=== PATIENT | female | born 1995 | race Caucasian/White ===

== ENCOUNTER 2018-05-06 16:33 | Emergency (ER) | payer OTHER, BC ==
--- NOTE | 2018-05-06 17:25 | ED ---
General Adult HPI - General Chief complaint: Head Injury Stated complaint: Head injury-[facility] Time Seen by Provider: 05/06/18 16:46 Source: patient, RN notes reviewed, old records reviewed Mode of arrival: ambulatory Limitations: no limitations - History of Present Illness Initial comments: 23-year-old female patient with past medical history of concussions presents to ED after sustaining a minor head trauma approximately 3 hours prior to presentation. 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 Patient reports that the plastic door came down and hit her on the crown of her head. Patient denies any loss of consciousness. 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 Patient poor that she went to [facility] that she was recommended to present to the ED. Patient states that she is asymptomatic. States that she does not feel like whn she had concussions in the past. Patient denies any changes in vision, headache, nausea vomiting, altered mental status. Patient does not have any ecchymoses, contusion, laceration. Patient denies all other review of systems. Systemic: Pt denies fatigue, myalgia, fever/chills, rash. Pt denies weakness, night sweats, weight loss. Neuro: Pt denies headache, visual disturbances, syncope or pre-syncope. HEENT: Pt denies ocular discharge or irritation, otalgia, rhinorrhea, pharyngitis or notable lymphadenopathy. Cardiopulmonary: Pt denies chest pain, SOB, heart palpitations, dyspnea on exertion. Abdominal/GI: Pt denies abdominal pain, n/v/d. : Pt denies dysuria, burning w/ urination, frequency/urgency. Denies new onset urinary or bowel incontinence. MSK: Pt denies myalgia, loss of strength or function in extremities. Neuro: Pt denies new onset weakness, paresthesias. - Related Data Home Medications Medication Instructions Recorded Confirmed ALPRAZolam [Xanax] 0.25 mg PO BID 05/06/18 05/06/18 Cyanocobalamin (Vitamin B-12) 1,000 mcg PO DAILY 05/06/18 05/06/18 [Vitamin B-12] Escitalopram [Lexapro] 10 mg PO DAILY 05/06/18 05/06/18 L.acidoph,Paracasei, B.lactis 1 cap PO DAILY 05/06/18 05/06/18 [Probiotic] Tamra Fe 1-20 1 tab PO DAILY 05/06/18 05/06/18 Multivitamins, Thera [Multivitamin 1 tab PO DAILY 05/06/18 05/06/18 (formulary)] Allergies Allergy/AdvReac Type Severity Reaction Status Date / Time paroxetine [From Paxil] AdvReac Nausea & Verified 05/06/18 17:24 Vomiting Review of Systems ROS Statement: Those systems with pertinent positive or pertinent negative responses have been documented in the HPI. ROS Other: All systems not noted in ROS Statement are negative. Past Medical History Past Medical History: No Reported History History of Any Multi-Drug Resistant Organisms: None Reported Past Surgical History: Adenoidectomy, Tonsillectomy Additional Past Surgical History / Comment(s): left breast mass removed Past Psychological History: Anxiety Smoking Status: Current some day smoker Past Alcohol Use History: Occasional Past Drug Use History: None Reported General Exam - General Exam Comments Initial Comments: Constitutional: NAD, AOX3, Pt has pleasant affect. HEENT: NC/AT, trachea midline, neck supple, no lymphadenopathy. Posterior pharynx non erythematous, without exudates. External ears appear normal, without discharge. Mucous membranes moist. Eyes PERRLA, EOM intact. There is no scleral icterus. No pallor noted. Cardiopulmonary: RRR, no murmurs, rubs or gallops, no JVD noted. Lungs CTAB in anterior and posterior perkins. No peripheral edema. Abdominal exam: Abdomen soft and non-distended. Abdomen non-tender to palpation in all 4 quadrants. Bowel sounds active in LLQ. No hepatosplenomegaly. No ecchymosis Neuro: CN II-XII intact. No nuchal rigidity. No gamboa sign or raccoon eyes. MSK: No posterior calf tenderness bilaterally, homans sign negative bilaterally. Posterior tibialis and radial pulse +2 bilaterally. Sensation intact in upper and lower extremities. Full active ROM in upper and lower extremities, 5/5 strength. Limitations: no limitations Course Vital Signs 05/06/18 05/06/18 16:40 17:53 Temperature 98 F 98.1 F Pulse Rate 77 63 Respiratory 18 19 Rate Blood Pressure 144/92 121/75 O2 Sat by Pulse 100 100 Oximetry Medical Decision Making - Medical Decision Making 23-year-old female patient with past medical history of concussions presents to ED after sustaining a minor head trauma approximately 3 hours prior to presentation. 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 Patient reports that the plastic door came down and hit her on the crown of her head. Patient denies any loss of consciousness. 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 Patient poor that she went to [email or web address] that she was recommended to present to the ED. Patient states that she is asymptomatic. States that she does not feel like whn she had concussions in the past. Patient denies any changes in vision, headache, nausea vomiting, altered mental status. Patient does not have any ecchymoses, contusion, laceration. Patient denies all other review of systems. Patient vital signs stable, afebrile. Physical exam displayed normal neurologic exam, no acute pathology. Shared decision making, patient declined CT. Patient states that she'll monitor for any symptoms. Pt to return to ED if new s/sx develop or if condition worsens in anyway. Case discussed with Dr. Pelaez. Disposition Clinical Impression: Minor head trauma Disposition: HOME SELF-CARE Condition: Stable Additional Instructions: Patient to adhere to previously discussed treatment plan and will take medication(s) as directed. Patient to follow up with PCP in 1-2 days. Patient to return to ED if symptoms do not improve. Please return to ER if condition worsens in any way. Please follow-up with primary care provider in 1-2 days. Is patient prescribed a controlled substance at d/c from ED?: No Referrals: Zeferino Jennings MD [Primary Care Provider] - 1-2 days
[2018-05-06 17:54] VITALS: BP 121/75; PULSE 63; RESP 19; TEMP 98.1
== END 2018-05-06 17:50 | disposition home or self-care (01) ==
LOC: EC 16:33
DX: S09.90XA Unspecified injury of head, initial encounter (principal); F41.9 Anxiety disorder, unspecified; F17.200 Nicotine dependence, unspecified, uncomplicated; Z53.29 Procedure and treatment not carried out because of patient's decision for other reasons; Z79.899 Other long term (current) drug therapy; Z88.8 Allergy status to other drugs, medicaments and biological substances; W22.8XXA Striking against or struck by other objects, initial encounter; Y92.511 Restaurant or cafe as the place of occurrence of the external cause; Y99.0 Civilian activity done for income or pay
CPT/HCPCS: 99283

== ENCOUNTER 2021-09-25 11:29 | Inpatient (IN) | payer BC ==
[2021-09-25 12:23] LABS: Basophils # (A) 0.1 k/uL (0-0.2); Basophils % (A) 0 %; Eosinophils # (A) 0.1 k/uL (0-0.7); Eosinophils % (A) 1 %; HCT 37.7 % (34.0-46.0); HGB 12.5 gm/dL (11.4-16.0); Lymphocytes # (A) 2.8 k/uL (1.0-4.8); Lymphocytes % (A) 26 %; MCH 29.6 pg (25.0-35.0); MCHC 33.1 g/dL (31.0-37.0); MCV 89.4 fL (80.0-100.0); Mean Platelet Volume 9.4; Monocytes # (A) 0.6 k/uL (0-1.0); Monocytes % (A) 5 %; Neutrophils # (A) 7.2 k/uL (1.3-7.7); Neutrophils % (A) 65 %; Platelet Count 229 k/uL (150-450); RBC 4.22 m/uL (3.80-5.40); RDW 12.8 % (11.5-15.5); WBC 11.1 k/uL (3.8-10.6)
[2021-09-25 12:35] LABS: Uric Acid 6.9 mg/dL (3.7-7.4)
[2021-09-25 12:36] LABS: Appearance,Urine Clear (Clear); Bilirubin,Urine Negative (Negative); Blood,Urine Negative (Negative); Color,Urine Colorless; Glucose,Urine (UA) Negative (Negative); Ketones,Urine Negative (Negative); Leukocyte Esterase,Urine Negative (Negative); Nitrite,Urine Negative (Negative); PH, Urine 6.5 (5.0-8.0); Protein,Urine Negative (Negative); Specific Gravity,Urine 1.007 (1.001-1.035); Urobilinogen,Urine <2.0 mg/dL (<2.0)
[2021-09-25 12:36] LABS: INR 0.8 (<1.2); Partial Thromboplastin Time 23.8 sec (22.0-30.0); Prothrombin Time 9.3 sec (9.0-12.0)
[2021-09-25] MEDS ORDERED: TERBUTALINE 1 MG/ML VIAL SQ PRN (12:39)
[2021-09-25] MEDS ORDERED: LIDOCAINE 0.5% (PF) 5 MG/ML (50 ML SDV) SQ PRN (12:39)
[2021-09-25] MEDS ORDERED: METHYLERGONOVINE 0.2 MG/ML 1 ML AMP IM PRN (12:39)
[2021-09-25] MEDS ORDERED: CARBOPROST TROMETHAMINE 250 MCG/ML 1 ML AMP IM PRN (12:39)
[2021-09-25] MEDS ORDERED: OXYTOCIN 10 UNIT/ML 1 ML VIAL IM PRN (12:39)
--- NOTE | 2021-09-25 12:39 | P.HPOB ---
History of Present Illness H&P Date: 09/25/21 Chief Complaint: 37-3/7 weeks, -induced hypertension The patient is a 26-year-old 1 para 0 admitted at 37-3/7 weeks as established by 9 week ultrasound. She is admitted from the office after having had 2 blood pressures in the office of approximately 160/104. She was sent for evaluation in triage at which time she continued to have blood pressures ranging in the range of 140-150 over high 80s to mid 90s. Laboratory workup is pending at this point. She denies any significant edema, headaches, or scotomata. Given the continued elevated and labile blood pressures and her gestational age of more than 37 weeks, I have opted to admit her for induction of labor. Prior to this, her has been uncomplicated. She had Covid during the and has had reassuring testing on a weekly basis since 32 weeks. On labor and delivery, all signs reassuring with a category 1 heart rate tracing. Group B strep status is negative. Obstetrical history: 1 para 0 with current statistics listed in history present illness. EDC of 10/13/2021 was established by 9 week ultrasound. Laboratory workup demonstrates a blood type of A+ with a negative antibody screen. Rubella status is is nonimmune. The remainder of the laboratory workup is within normal limits 1 hour Glucola was normal and group B strep status is negative. Gynecologic history: Unremarkable with no history of any infections to include STDs. Review of Systems Review of systems is confined to history of present illness. Past Medical History Past Medical History: No Reported History History of Any Multi-Drug Resistant Organisms: None Reported Past Surgical History: Adenoidectomy, Tonsillectomy Additional Past Surgical History / Comment(s): left breast mass removed Smoking Status: Former smoker Medications and Allergies Home Medications Medication Instructions Recorded Confirmed Type Escitalopram [Lexapro] 20 mg PO DAILY 05/06/18 09/25/21 History Multivitamins, Thera [Multivitamin 1 tab PO DAILY 05/06/18 09/25/21 History (formulary)] Omeprazole 20 mg PO DAILY 09/25/21 09/25/21 History Allergies Allergy/AdvReac Type Severity Reaction Status Date / Time nickel Allergy Rash/Hives Verified 09/25/21 11:51 paroxetine [From Paxil] AdvReac Nausea & Verified 09/25/21 11:51 Vomiting Exam Intake and Output 09/24/21 09/25/21 09/25/21 22:59 06:59 14:59 Other: Weight 84.822 kg In general, this is a well-developed, well-nourished white female in no acute distress. Her heart has a regular rhythm and rate without murmur. Her lungs are clear to auscultation bilaterally in all perkins. Her abdomen is gravid, nondistended, has normal active bowel sounds, is soft, nontender, and without any palpable masses aside from uterine fundus. Her extremities are without any cyanosis, clubbing, or edema and are nontender to palpation bilaterally. Digital cervical examination last week demonstrates her cervix to be 2 cm dilated, 60% effaced, the vertex in presentation at -2 station. She will shortly undergo artificial rupture of membranes along with Pitocin augmentation. Results Result Diagrams: 09/25/21 12:06 Abnormal Lab Results - Last 24 Hours (Table) 09/25/21 Range/Units 12:06 WBC 11.1 H (3.8-10.6) k/uL Assessment and Plan (1) Term Current Visit: Yes Status: Acute Code(s): Z34.90 - ENCNTR FOR SUPRVSN OF NORMAL , UNSP, UNSP TRIMESTER SNOMED Code(s): 67901280 (2) induced hypertension Current Visit: Yes Status: Acute Code(s): O13.9 - GESTATIONAL HTN W/O SIGNIFICANT PROTEINURIA, UNSP TRIMESTER SNOMED Code(s): 75616199 Plan: Given her favorable cervix, she will be admitted for induction of labor. Pitocin will be started and she will undergo artificial rupture of membranes. She'll have close maternal and surveillance and expectant management will be practice. She is a good candidate for either IV or epidural analgesia, whichever she may choose.
[2021-09-25] MEDS ORDERED: OXYTOCIN 30 UNITS/500 ML NS 30 UNIT in SALINE 1 500ML.BAG IV SCH ×2 (12:45→21:45)
[2021-09-25] MEDS: LACTATED RINGERS 1,000 ML IV SCH ×2 (13:02→19:44)
[2021-09-25 13:11] LABS: Amphetamine Screen,Urine Not Detected (NotDetected); Barbiturate Screen,Urine Not Detected (NotDetected); Benzodiazepines Screen,Urine Not Detected (NotDetected); Cocaine Screen,Urine Not Detected (NotDetected); Methadone Screen, Urine Not Detected (NotDetected); Opiate Screen,Urine Not Detected (NotDetected); Oxycodone Screen, Urine Not Detected (NotDetected); Phencyclidine Screen,Urine Not Detected (NotDetected); Tricyclic Antidepressant,Urine Not Detected (NotDetected); Urn Cannabinoid Scrn Detected (NotDetected)
[2021-09-25] MEDS: BUTORPHANOL 1 MG/ML 1 ML VIAL IV PRN ×2 (16:20→18:08)
[2021-09-25] MEDS ORDERED: fentaNYL (PF) 50 MCG/ML 5 ML AMP ONE (19:21)
[2021-09-25] MEDS ORDERED: BUPIVACAINE (PF) 0.25% 30 ML VIAL ONE (19:21)
[2021-09-25] MEDS ORDERED: SODIUM CHLORIDE 0.9% 100 ML BAG ONE (19:21)
[2021-09-25] MEDS ORDERED: diphenhydrAMINE 25 MG CAP PO PRN (21:38)
[2021-09-25] MEDS ORDERED: SIMETHICONE 80 MG CHEWABLE PO PRN (21:38)
[2021-09-25] MEDS ORDERED: HYDROcodone/APAP 7.5-325MG 1 EACH TAB PO PRN (21:38)
[2021-09-25] MEDS ORDERED: ZOLPIDEM 5 MG TAB PO PRN (21:38)
[2021-09-25] MEDS ORDERED: HYDROcodone/APAP 5-325MG 1 EACH TAB PO PRN (21:38)
[2021-09-25] MEDS ORDERED: diphenhydrAMINE 50 MG CAP PO PRN (21:38)
[2021-09-25] MEDS ORDERED: BENZOCAINE/MENTHOL SPRAY 1 GM/SPRAY AEROSOL TOPICAL PRN (21:38)
[2021-09-25] MEDS ORDERED: diphenhydrAMINE 50 MG/ML 1 ML VIAL IVP PRN ×2 (21:38)
[2021-09-25] MEDS ORDERED: LANOLIN CREAM 5 GM TUBE TOPICAL PRN (21:38)
[2021-09-25] MEDS ORDERED: HYDROCORTISONE 2.5% RECTAL CREAM 30 GM TUBE RECTAL PRN (21:38)
--- NOTE | 2021-09-25 21:41 | P.PROBDLV ---
Vaginal Delivery Note - . Vaginal Delivery Note: The patient is a 26-year-old 1 para 0 admitted at 37-3/7 weeks from the office secondary to elevated blood pressures in the office. She continued to have elevated blood pressures in triage. Laboratory workup was essentially within normal limits for preeclampsia aside from an elevated LDH. The decision was made to proceed with induction secondary to the fact that the patient was greater than 37 weeks with favorable cervix. She had Pitocin augmentation sta rted and underwent artificial rupture of membranes. She progressed fairly quickly through the day to approximately 8 cm at which time she had an epidural catheter placed for analgesia. She then progressed fairly quickly and had fairly significant descent. She pushed over the course of approximately 40 minutes to a normal spontaneous vaginal delivery of a viable 6 lbs. 3 oz. baby girl with Apgars of 9 at 1 minute and 9 at 5 minutes delivered in the direct occiput anterior position. The placenta was delivered spontaneously, intact, and grossly normal with a grossly normal three-vessel cord inserted approximate 1 cm from the margin of the placental disc. The insertion of the cord was slightly velamentous in nature. There was a small second-degree midline perineal laceration which was repaired in standard fashion using 3-0 chromic catgut without difficulty. Estimated blood loss for the case is approximately 350 mL. There were no complications. All sponge, instrument, and needle counts were correct. Both mother and are resting comfortably in recovery.
[2021-09-25] MEDS: IBUPROFEN 600 MG TAB PO PRN (22:06)
[2021-09-26 06:07] LABS: Basophils % (A) 0 %; Eosinophils % (A) 0 %; HCT 32.8 % (34.0-46.0); HGB 10.6 gm/dL (11.4-16.0); Lymphocytes # (A) 2.3 k/uL (1.0-4.8); Lymphocytes % (A) 15 %; MCH 28.9 pg (25.0-35.0); MCHC 32.3 g/dL (31.0-37.0); MCV 89.5 fL (80.0-100.0); Mean Platelet Volume 9.6; Monocytes # (A) 0.9 k/uL (0-1.0); Monocytes % (A) 6 %; Neutrophils # (A) 11.8 k/uL (1.3-7.7); Neutrophils % (A) 76 %; Platelet Count 224 k/uL (150-450); RBC 3.66 m/uL (3.80-5.40); RDW 12.7 % (11.5-15.5); WBC 15.6 k/uL (3.8-10.6)
[2021-09-26] MEDS: IBUPROFEN 600 MG TAB PO PRN ×2 (08:38→16:44)
--- NOTE | 2021-09-26 10:30 | P.PNOBGVD ---
Subjective - Subjective Patient reports: Reports appetite normal, Reports voiding normally, Reports pain well controlled, Reports ambulating normally : doing well Objective - Latest Vital Signs Latest vital signs: Vital Signs Temp Pulse Resp BP 09/26/21 08:00 98.2 F 120 H 16 155/95 09/26/21 04:00 98.5 F 83 16 144/81 09/25/21 23:29 98.3 F 86 17 140/81 09/25/21 22:59 83 17 156/88 09/25/21 22:29 17 09/25/21 22:14 81 17 142/82 09/25/21 21:59 81 17 146/80 09/25/21 21:44 87 18 148/82 09/25/21 21:29 105 H 18 184/69 09/25/21 12:30 98.1 F 84 18 141/95 Intake and Output 09/25/21 09/26/21 09/26/21 22:59 06:59 14:59 Intake Total 1683.6 Output Total 450 75 Balance 1233.6 -75 Intake: IV 1500 Intake, IV Titration 183.6 Amount Oxytocin 30 Units/500 ml 183.6 Ns 30 unit In Saline 1 500ml.bag @ Per Protocol IV .Q0M [facility] Rx#:[id number] Output: Estimated Blood Loss 350 Output, Quantitative 100 75 Blood Loss Other: # Voids 1 - Exam Extremities: Present: normal Abdomen: Present: normal appearance, soft Uterus: Present: normal, firm (The uterine fundus as tonic and nontender well below the umbilicus.) - Labs Labs: Abnormal Lab Results - Last 24 Hours (Table) 09/25/21 09/25/21 09/25/21 Range/Units 12:00 12:06 12:06 WBC 11.1 H (3.8-10.6) k/uL RBC (3.80-5.40) m/uL Hgb (11.4-16.0) gm/dL Hct (34.0-46.0) % Neutrophils # (1.3-7.7) k/uL Fibrinogen 544 H (200-500) mg/dL Lactate Dehydrogenase (313-618) U/L U Marijuana (THC) Screen Detected H (NotDetected) 09/25/21 09/26/21 Range/Units 12:06 05:44 WBC 15.6 H (3.8-10.6) k/uL RBC 3.66 L (3.80-5.40) m/uL Hgb 10.6 L (11.4-16.0) gm/dL Hct 32.8 L (34.0-46.0) % Neutrophils # 11.8 H (1.3-7.7) k/uL Fibrinogen (200-500) mg/dL Lactate Dehydrogenase 671 H (313-618) U/L U Marijuana (THC) Screen (NotDetected) Assessment and Plan (1) Term Current Visit: Yes Status: Acute Code(s): Z34.90 - ENCNTR FOR SUPRVSN OF NORMAL , UNSP, UNSP TRIMESTER SNOMED Code(s): 15194566 (2) induced hypertension Current Visit: Yes Status: Acute Code(s): O13.9 - GESTATIONAL HTN W/O SIGNIFICANT PROTEINURIA, UNSP TRIMESTER SNOMED Code(s): 61669736 (3) Normal spontaneous vaginal delivery Current Visit: Yes Status: Acute Code(s): O80 - ENCOUNTER FOR FULL-TERM U NCOMPLICATED DELIVERY SNOMED Code(s): 26089422 Plan: Continue routine and postoperative care. Blood pressures remained slightly elevated though not at a level requiring antihypertensives. I would anticipate discharge home tomorrow pending applications.
[2021-09-26] MEDS: ACETAMINOPHEN TAB 325 MG TAB PO PRN (12:40)
[2021-09-26] MEDS ORDERED: MEASLES-MUMPS-RUBELLA VACC/PF 12,500 UNIT/0.5 ML VIAL SQ ONE (15:51)
[2021-09-27] MEDS: SENNOSIDES-DOCUSATE SODIUM 1 EACH TAB PO SCH ×3 (00:28→07:59)
[2021-09-27] MEDS: IBUPROFEN 600 MG TAB PO PRN (04:24)
[2021-09-27] MEDS: ACETAMINOPHEN TAB 325 MG TAB PO PRN (07:59)
[2021-09-27] MEDS ORDERED: LABETALOL 100 MG TAB PO SCH (09:00)
--- NOTE | 2021-09-27 09:52 | P.DS ---
Providers Date of admission: 09/25/21 12:22 Expected date of discharge: 09/27/21 Attending physician: Grzegorz Moreland Primary care physician: Stated None - Discharge Diagnosis(es) (1) Normal spontaneous vaginal delivery Current Visit: Yes Status: Acute (2) Perineal laceration during delivery Current Visit: Yes Status: Acute (3) induced hypertension Current Visit: Yes Status: Acute (4) Rubella non-immune status, antepartum Current Visit: Yes Status: Acute (5) Term Current Visit: Yes Status: Acute Hospital Course: This is a 26-year-old 1 para 0 that was admitted at 37-3/7 weeks from the office secondary to elevated blood pressures. She continued to have elevated blood pressures well observed in OB triage. Lab workup was negative for preeclampsia. Patient and Dr. Strong made the decision for induction of labor secondary to gestational hypertension. Patient was admitted to labor and delivery and Pitocin augmentation of labor was begun. Amniotomy was performed. Patient progressed through labor eventually be getting an epidural for analg esia. Patient progressed to complete began pushing and had a normal spontaneous vaginal delivery of a viable female infant, weight of 6 lbs. 3 oz. Patient did sustain a secondary midline laceration which was repaired in the usual fashion with 3-0 chromic. Patient's course has been essentially uncomplicated. Elevated blood pressures on day #2 are noted therefore labetalol by mouth was begun. Patient will continue labetalol 100 mg twice daily . Patient is given a prescription for this. Patient is urged to follow up with Dr. Moreland in 1 week for a blood pressure check in addition. Patient Condition at Discharge: Good Plan - Discharge Summary New Discharge Prescriptions: No Action Multivitamins, Thera [Multivitamin (formulary)] 1 tab PO DAILY Escitalopram [Lexapro] 20 mg PO DAILY Omeprazole 20 mg PO DAILY Discharge Medication List Escitalopram [Lexapro] 20 mg PO DAILY 05/06/18 [History] Multivitamins, Thera [Multivitamin (formulary)] 1 tab PO DAILY 05/06/18 [History] Omeprazole 20 mg PO DAILY 09/25/21 [History] Follow up Appointment(s)/Referral(s): Grzegorz Moreland MD [STAFF PHYSICIAN] - 1 Week Patient Instructions/Handouts: Vaginal Delivery (GEN), Vaginal Delivery (DC) Discharge Disposition: HOME SELF-CARE
[2021-09-27 16:21] VITALS: BP 148/85; PULSE 67; RESP 18; TEMP 98.5
== END 2021-09-27 16:55 | disposition home or self-care (01) | DRG 807 ==
LOC: FBPOP 11:29 → 4FBP 12:22
PROVIDERS: ADMIT Obstetrics & Gynecology; ATTEND Obstetrics & Gynecology
PROC: 0KQM0ZZ Repair Perineum Muscle, Open Approach (ICD-10-PCS; principal; 2021-09-25)
PROC: 10E0XZZ Delivery of Products of Conception, External Approach (ICD-10-PCS; principal; 2021-09-25)
PROC: 10907ZC Drainage of Amniotic Fluid, Therapeutic from Products of Conception, Via Natural or Artificial Opening (ICD-10-PCS; principal; 2021-09-25)
DX: O13.4 Gestational [pregnancy-induced] hypertension without significant proteinuria, complicating childbirth (principal); Z37.0 Single live birth; O70.1 Second degree perineal laceration during delivery; Z3A.37 37 weeks gestation of pregnancy; Z79.899 Other long term (current) drug therapy; Z87.891 Personal history of nicotine dependence; Z28.21 Immunization not carried out because of patient refusal
CPT/HCPCS: 59025; 80306; 81003; 83615; 84450; 84460; 84550; 85025; 85384; 85610; 85730; 86850; 86900; 86901; 88307; 90707

== ENCOUNTER → 2022-05-22 | Outpatient (CLI) | payer BC ==
--- NOTE | 2022-05-22 10:19 | USB ---
Patient History: Menarche at age 12. First Full-Term at age 26. Premenopausal. Patient has history of breast feeding. Currently using Hormonal Contraceptives, starting at age 19. Maternal grandmother had breast cancer under age 50. Maternal grandmother had breast cancer at or over age 50. Technique: Method: Targeted. Findings: The upper outer quadrant of the right breast, the lower outer quadrant of the right breast, the axilla of the right breast and the retroareolar of the right breast were scanned. Targeted ultrasound of the right breast from 6-12 o'clock was performed. Additional evaluation of the nipple and axilla. There is a hypoechoic lesion within the right breast at 8:00 6 m from the nipple with marked posterior acoustic shadowing. This measures 1.0 x 0.7 x 1.0 cm with peripheral vascularity identified. Could represent a large calcification. Additional circumscribed heterogenous hypoechoic lesion within the right breast at 9:00 8 cm of the nipple measuring 1.1 x 0.5 x 0.7 cm. This is parallel in orientation. With peripheral vascularity identified. No posterior acoustic features identified. Overall Assessment: Incomplete: need additional imaging evaluation, BI-RAD 0 Management: Diagnostic Mammogram of both breasts. A clinical breast exam by your physician is recommended on an annual basis and results should be correlated with mammographic findings. This exam should not preclude additional follow-up of suspicious palpable abnormalities. Results were given to the patient verbally at the time of exam. Electronically signed and approved by: Humberto Sylvester D.O.
--- NOTE | 2022-05-22 10:23 | MM ---
Reason for Exam: Clinical finding. Baseline mammogram. Indicated Problems: Lump or thickening of the right side. Patient History: Currently . Maternal grandmother had breast cancer. Maternal grandmother had breast cancer. Prior Study Comparison: Patient's first Mammogram. No prior studies available for comparison. Tissue Density: The breast tissue is extremely dense which could obscure a lesion on mammography. Findings: Analyzed By CAD. Well-circumscribed high density mass within the right breast at 8:00 at middle depth corresponding to palpable marker. This corresponds to mass demonstrated on ultrasound with significant posterior shadowing. No definitive mammographic correlation with other mass within the right breast at 9:00. No suspicious calcifications within either breast. No suspicious mass within the left breast. No architectural distortion within either breast. Overall Assessment: Suspicious, BI-RAD 4 Management: Ultrasound Core Biopsy of the right breast. Aspiration of the right breast. The shadowing mass demonstrated 8:00 within the right breast could represent a galactocele. Dedicated ultrasound-guided aspiration is recommended with possible core biopsy depending on results. The other right breast mass at 9:00 on ultrasound within the right breast is suspicious and ultrasound-guided core biopsy is recommended. A clinical breast exam by your physician is recommended on an annual basis and results should be correlated with mammographic findings. This exam should not preclude additional follow-up of suspicious palpable abnormalities. Results were given to the patient verbally at the time of exam. Electronically signed and approved by: Humberto Sylvester D.O.
== END | disposition home or self-care (01) ==
LOC: RADUSWWP 08:58
PROVIDERS: ATTEND Obstetrics & Gynecology
DX: N64.4 Mastodynia (principal); Z80.3 Family history of malignant neoplasm of breast
CPT/HCPCS: 77062; 77066

== ENCOUNTER → 2022-06-08 | Day surgery (SDC) | payer BC ==
--- NOTE | 2022-06-12 11:17 | MM ---
Reason for Exam: Post Procedure Mammogram. Last screening mammogram was performed less than 1 month ago. Patient History: First Full-Term at age 26. Maternal grandmother had breast cancer. Maternal grandmother had breast cancer. Prior Study Comparison: 05/22/2022 Bilateral MG 3D diag mammo w/cad [facility], [facility]. Tissue Density: Right: The breast tissue is extremely dense which could obscure a lesion on mammography. Pathology Description: Location: 8 o'clock. Marker Left Behind. Cores: 5 Skin Nicks: 1 Ultrasound images again demonstrate the hypoechoic area with posterior shadowing at the 8:00 position right breast. There is an adjacent hypoechoic area. On close real-time observation this appears to be identical to the breast tissue adjacent and is likely normal parenchymal tissue. Short-term follow-up of this area at the 9:00 position right breast in 6 months can be performed. The procedure of ultrasound guided core biopsy was explained to the patient. Benefits, alternatives, and risks were discussed. An informed consent was then obtained. A timeout was performed. The patient was placed in supine positioning for imaging and for the procedure. The overlying skin was prepped and draped in usual sterile fashion. Lidocaine was used as anesthetic into the skin and subcutaneous tissue up to area of concern in the right breast. This is a hypoechoic area with shadowing. A small skin fletcher was made with surgical scalpel. Under ultrasound guidance, a 12-gauge vacuum assisted biopsy gun device was used to obtain 5 core samples. A biopsy clip was left at the lesion. Hydromark core butterfly marker was placed adjacent. The patient tolerated the procedure well without any immediate complication. The patient was kept in the radiology department for short stay after the procedure and then discharged home in stable condition. Postprocedure mammogram: The patient was transferred to mammography for physician ordered post procedure mammogram for clip placement verification. Surgical clip is adjacent to the solid hypodense nodule identified by mammogram. Impression: 1. Successful ultrasound guided core biopsy of area of concern in the right breast, full pathology results to follow. 2. Probably benign finding 9 o'clock position right breast. Recommendations: 1. Recommendations are pending pathology results. 2. In the absence of suspicious findings, follow-up right breast ultrasound 6 months attention 9:00 position is recommended. Pathology Results: Result: Benign, Fibrocystic change. RIGHT BREAST, 8:00, ULTRASOUND GUIDED NEEDLE CORE BIOPSY: Benign breast tissue with lactational changes and fibrocystic changes including microcalcifications. Overall Assessment: Benign Assessment: MG diagnostic mammo RT wo CAD - Right: Benign, BI-RAD 2. Management: Diagnostic Breast Ultrasound of the right breast in 6 months. Electronically signed and approved by: Werner Torres D.O. Radiologis
== END ==
LOC: RADUSWWP 12:31
PROVIDERS: ATTEND Surgery
DX: N60.21 Fibroadenosis of right breast (principal)
CPT/HCPCS: 88305; 77065; 19083; 76641; 19084; A4648

== ENCOUNTER → 2022-12-28 | Outpatient (CLI) | payer BC ==
--- NOTE | 2022-12-28 09:43 | USB ---
Reason for Exam: Follow-up at short interval from prior study. Patient History: First Full-Term at age 26. 06/08/2022, Benign US biopsy breast VAD RT on the right side. 06/08/2022, US discontinued breast bx RT on the right side. Maternal grandmother had breast cancer. Maternal grandmother had breast cancer. Technique: Method: Targeted. Prior Study Comparison: 05/22/2022 Bilateral MG 3D diag mammo w/cad JENNIFER, H. 05/22/2022 Right US breast limited RT, [facility]. 06/08/2022 Right MG diagnostic mammo RT wo CAD, [facility]. Findings: Technique utilized:US breast limited RT Image; Ultrasound imaging of: Area of concern, retroareolar region and axilla. Stable appearing dense tissue versus intramammary lymph node at 9:00 6 cm from nipple. This measures up to 10 x 4 x 8 mm. Shadowing lesion. The biopsied not significantly changed. No evidence for organizing fluid collection or suspicious mass. Overall Assessment: Benign, BI-RAD 2 Management: Screening Mammogram of both breasts in 1 year. A clinical breast exam by your physician is recommended on an annual basis and results should be correlated with mammographic findings. This exam should not preclude additional follow-up of suspicious palpable abnormalities. Results were given to the patient verbally at the time of exam. Electronically signed and approved by: Jamie Corley DO
== END | disposition home or self-care (01) ==
LOC: RADUSWWP 08:52
PROVIDERS: ATTEND Family Medicine
DX: R92.8 Other abnormal and inconclusive findings on diagnostic imaging of breast (principal); Z80.3 Family history of malignant neoplasm of breast

== ENCOUNTER 2024-01-30 16:19 | Emergency (ER) | payer BC ==
[2024-01-30 16:34] VITALS: RESP 18; TEMP 97.1
--- NOTE | 2024-01-30 17:20 | ED ---
Abdominal Pain HPI - General Chief Complaint: Abdominal Pain Stated Complaint: nausea,vomiting,chills Time Seen by Provider: 01/30/24 16:34 Source: patient Mode of arrival: ambulatory Limitations: no limitations - History of Present Illness Initial Comments: This patient is a 28-year-old woman who arrives to have evaluation of lower abdominal pain, nausea and vomiting. The patient states that she was in her usual state of health yesterday. She states she did have some alcoholic drinks last night but she was feeling well when she went to bed. She states she woke up at 5 AM and noticed that she had some bilateral lower abdominal burning and then she started having vomiting. She states she has probably had greater than 20 episodes of vomiting over the course of the day since then. She has not been able to tolerate much in the way of fluids. She has not noted any bloody or coffee-ground emesis. She denies change in bowel movements. She states that she has not noted any urinary symptoms other than she feels dehydrated and is not urinating now. Last menstrual period was approximately 2 weeks ago and was normal. MD Complaint: abdominal pain Onset/Timin -: hour(s) Location: LLQ, RLQ Migration to: no migration Severity: moderate Quality: aching, burning Consistency: constant Improves With: nothing Worsens With: nothing Associated Symptoms: nausea, vomiting - Related Data LMP (females 10-50): last week Patient : No Home Medications Medication Instructions Recorded Confirmed Escitalopram [Lexapro] 10 mg PO BID 05/06/18 05/25/22 Multivitamins, Thera [Multivitamin 1 tab PO DAILY 05/06/18 05/25/22 (formulary)] Allergies Allergy/AdvReac Type Severity Reaction Status Date / Time nickel Allergy Rash/Hives Verified 01/30/24 16:31 paroxetine [From Paxil] AdvReac Nausea & Verified 01/30/24 16:31 Vomiting Review of Systems ROS Statement: Those systems with pertinent positive or pertinent negative responses have been documented in the HPI. ROS Other: All systems not noted in ROS Statement are negative. Constitutional: Reports: chills. Denies: fever, weakness Respiratory: Denies: cough, dyspnea Cardiovascular: Denies: chest pain, palpitations Gastrointestinal: Reports: abdominal pain, nausea, vomiting. Denies: diarrhea, constipation, hematemesis, melena, hematochezia Genitourinary: Denies: urgency, dysuria, hematuria, abnormal menses Musculoskeletal: Denies: back pain Skin: Denies: rash Neurological: Denies: headache, weakness, numbness Psychiatric: Reports: anxiety Past Medical History Past Medical History: No Reported History History of Any Multi-Drug Resistant Organisms: None Reported Past Surgical History: Adenoidectomy, Tonsillectomy Additional Past Surgical History / Comment(s): left breast mass removed Past Anesthesia/Blood Transfusion Reactions: No Reported Reaction Past Psychological History: Anxiety Smoking Status: Current every day smoker Past Alcohol Use History: Occasional Past Drug Use History: Marijuana - Past Family History Father Family Medical History: Hypertension General Exam Limitations: no limitations General appearance: alert, in no apparent distress, anxious Head exam: Present: atraumatic, normocephalic Eye exam: Present: normal appearance. Absent: scleral icterus, conjunctival injection Neck exam: Present: normal inspection Respiratory exam: Present: normal lung sounds bilaterally. Absent: respiratory distress, wheezes, rales, rhonchi, stridor, accessory muscle use Cardiovascular Exam: Present: regular rate, normal rhythm, normal heart sounds. Absent: systolic murmur, diastolic murmur, rubs, gallop GI/Abdominal exam: Present: soft. Absent: distended, tenderness, guarding, rebound, rigid, mass, pulsatile mass Extremities exam: Present: normal inspection, normal capillary refill. Absent: pedal edema, calf tenderness Back exam: Present: normal inspection. Absent: CVA tenderness (R), CVA tenderness (L) Neurological exam: Present: alert Skin exam: Present: warm, dry, intact, normal color. Absent: rash Course Vital Signs 01/30/24 01/30/24 01/30/24 16:31 18:30 21:18 Temperature 97.1 F L Pulse Rate 77 80 71 Respiratory 18 18 18 Rate Blood Pressure 133/85 109/80 115/70 O2 Sat by Pulse 100 99 99 Oximetry Medical Decision Making - Medical Decision Making Was pt. sent in by a medical professional or institution (, PA, A/C TECHNICIAN, urgent care, hospital, or [facility]...) When possible be specific @ -[No] Did you speak to anyone other than the patient for history (EMS, parent, family, police, friend...)? What history was obtained from this source @ -[No] Did you review nursing and triage notes (agree or disagree)? Why? @ -[I reviewed and agree with nursing and triage notes] Were old charts reviewed (outside hosp., previous admission, EMS record, old EKG, old radiological studies, urgent care reports/EKG's, [facility] records)? Report findings @ -[No old charts were reviewed] Differential Diagnosis (chest pain, altered mental status, abdominal pain women, abdominal pain men, vaginal bleeding, weakness, fever, dyspnea, syncope, headache, dizziness, GI bleed, back pain, seizure, CVA, palpatations, mental health, musculoskeletal)? @ -[Differential Abdominal Pain Women: Appendicitis, Cholecystitis, diverticulosis, ischemic bowel, pancreatitis, hepatitis, UTI, gastroenteritis, AAA, incarcerated hernia, bowel obstruction, constipation, inflammatory bowel, hepatitis, peptic ulcer disease, splenic infa rction, perforated viscus, vulvitis, ovarian torsion, PID, kidney stone, placenta abruption, this is not meant to be an all-inclusive list EKG interpreted by me (3pts min.). @ -[As above] X-rays interpreted by me (1pt min.). @ -[None done] CT interpreted by me (1pt min.). @ -[None done] U/S interpreted by me (1pt. min.). @ -[None done] What testing was considered but not performed or refused? (CT, X-rays, U/S, labs)? Why? @ -[None] What meds were considered but not given or refused? Why? @ -[None] Did you discuss the management of the patient with other professionals (professionals i.e. , PA, A/C TECHNICIAN, lab, RT, psych nurse, social media marketing manager, furniture upholstery mechanic, teacher, tactical response group officer, piano case maker)? Give summary @ -[No] Was smoking cessation discussed for >3mins.? @ -[No] Was critical care preformed (if so, how long)? @ -[No] Were there social determinants of health that impacted care today? How? (Homelessness, low income, unemployed, alcoholism, drug addiction, transportation, low edu. Level, literacy, decrease access to med. care, half-way, rehab)? @ -[No] Was there de-escalation of care discussed even if they declined (Discuss DNR or withdrawal of care, Hospice)? DNR status @ -[No] What co-morbidities impacted this encounter? (DM, HTN, Smoking, COPD, CAD, Cancer, CVA, ARF, Chemo, Hep., AIDS, mental health diagnosis, sleep apnea, morbid obesity)? @ -[None] Was patient admitted / discharged? Hospital course, mention meds given and route, prescriptions, significant lab abnormalities, going to OR and other pertinent info. @ -[Patient is a 28-year-old woman who presents with complaints of abdominal pain, nausea and vomiting. The patient physical exam is benign though does appear mildly dehydrated. The patient does have good response to fluids and antiemetics. She is feeling better and would like to go home. We discussed appropriate further care and follow-up as well as return parameters. Undiagnosed new problem with uncertain prognosis? @ -[No] Drug Therapy requiring intensive monitoring for toxicity (Heparin, Nitro, Insulin, Cardizem)? @ -[No] Were any procedures done? @ -[No] Diagnosis/symptom? @ -[Acute abdominal pain, resolved Nausea and vomiting, resolved Acute, or Chronic, or Acute on Chronic? @ -[Acute Uncomplicated (without systemic symptoms) or Complicated (systemic symptoms)? @ -[Uncomplicated Side effects of treatment? @ -[No] Exacerbation, Progression, or Severe Exacerbation? @ -[No] Poses a threat to life or bodily function? How? (Chest pain, [place], [place], pneumonia, PE, COPD, DKA, ARF, appy, cholecystitis, CVA, Diverticulitis, Homicidal, Suic idal, threat to staff... and all critical care pts) @ -[No] - Lab Data Result diagrams: 01/30/24 17:23 01/30/24 20:00 Lab Results 01/30/24 01/30/24 01/30/24 Range/Units 17:23 17:23 18:16 WBC 13.7 H (3.8-10.6) k/uL RBC 4.47 (3.80-5.40) m/uL Hgb 13.1 (11.4-16.0) gm/dL Hct 39.4 (34.0-46.0) % MCV 88.0 (80.0-100.0) fL MCH 29.2 (25.0-35.0) pg MCHC 33.2 (31.0-37.0) g/dL RDW 12.6 (11.5-15.5) % Plt Count 237 (150-450) k/uL MPV 7.9 Neutrophils % 90 % Lymphocytes % 6 % Monocytes % 3 % Eosinophils % 0 % Basophils % 0 % Neutrophils # 12.3 H (1.3-7.7) k/uL Lymphocytes # 0.9 L (1.0-4.8) k/uL Monocytes # 0.4 (0-1.0) k/uL Eosinophils # 0.1 (0-0.7) k/uL Basophils # 0.0 (0-0.2) k/uL Sodium (137-145) mmol/L Potassium (3.5-5.1) mmol/L Chloride (98-107) mmol/L Carbon Dioxide (22-30) mmol/L Anion Gap mmol/L BUN (7-17) mg/dL Creatinine (0.52-1.04) mg/dL Est GFR (CKD-EPI)AfAm (>60 ml/min/1.73 sqM) Est GFR (CKD-EPI)NonAf (>60 ml/min/1.73 sqM) Glucose (74-99) mg/dL Lactic Ac Sepsis Rflx Y Plasma Lactic Acid Fabien 3.0 H* (0.7-2.0) mmol/L Calcium (8.4-10.2) mg/dL Total Bilirubin (0.2-1.3) mg/dL AST (14-36) U/L ALT (4-34) U/L Alkaline Phosphatase (38-126) U/L C-Reactive Protein (<1.0) mg/dL Total Protein (6.3-8.2) g/dL Albumin (3.5-5.0) g/dL Amylase (30-110) U/L Lipase (23-300) U/L Urine Color Urine Appearance (Clear) Urine pH (5.0-8.0) Ur Specific [place] (1.001-1.035) Urine Protein (Negative) Urine Glucose (UA) (Negative) Urine Ketones (Negative) Urine Blood (Negative) Urine Nitrite (Negative) Urine Bilirubin (Negative) Urine Urobilinogen (<2.0) mg/dL Ur Leukocyte Esterase (Negative) Urine RBC (0-5) /hpf Urine WBC (0-5) /hpf Ur Squamous Epith Cells (0-4) /hpf Urine Mucus (None) /hpf Urine HCG, Qual (Not Detectd) 01/30/24 01/30/24 01/30/24 Range/Units 18:28 18:28 18:30 WBC (3.8-10.6) k/uL RBC (3.80-5.40) m/uL Hgb (11.4-16.0) gm/dL Hct (34.0-46.0) % MCV (80.0-100.0) fL MCH (25.0-35.0) pg MCHC (31.0-37.0) g/dL RDW (11.5-15.5) % Plt Count (150-450) k/uL MPV Neutrophils % % Lymphocytes % % Monocytes % % Eosinophils % % Basophils % % Neutrophils # (1.3-7.7) k/uL Lymphocytes # (1.0-4.8) k/uL Monocytes # (0-1.0) k/uL Eosinophils # (0-0.7) k/uL Basophils # (0-0.2) k/uL Sodium (137-145) mmol/L Potassium (3.5-5.1) mmol/L Chloride (98-107) mmol/L Carbon Dioxide (22-30) mmol/L Anion Gap mmol/L BUN (7-17) mg/dL Creatinine (0.52-1.04) mg/dL Est GFR (CKD-EPI)AfAm (>60 ml/min/1.73 sqM) Est GFR (CKD-EPI)NonAf (>60 ml/min/1.73 sqM) Glucose (74-99) mg/dL Lactic Ac Sepsis Rflx Plasma Lactic Acid Fabien 2.1 H* (0.7-2.0) mmol/L Calcium (8.4-10.2) mg/dL Total Bilirubin (0.2-1.3) mg/dL AST (14-36) U/L ALT (4-34) U/L Alkaline Phosphatase (38-126) U/L C-Reactive Protein (<1.0) mg/dL Total Protein (6.3-8.2) g/dL Albumin (3.5-5.0) g/dL Amylase (30-110) U/L Lipase (23-300) U/L Urine Color Light Yellow Urine Appearance Clear (Clear) Urine pH 7.5 (5.0-8.0) Ur Specific [place] 1.023 (1.001-1.035) Urine Protein 1+ H (Negative) Urine Glucose (UA) Negative (Negative) Urine Ketones 2+ H (Negative) Urine Blood Negative (Negative) Urine Nitrite Negative (Negative) Urine Bilirubin Negative (Negative) Urine Urobilinogen <2.0 (<2.0) mg/dL Ur Leukocyte Esterase Negative (Negative) Urine RBC <1 (0-5) /hpf Urine WBC <1 (0-5) /hpf Ur Squamous Epith Cells <1 (0-4) /hpf Urine Mucus Rare H (None) /hpf Urine HCG, Qual Not Detected (Not Detectd) 01/30/24 01/30/24 Range/Units 19:12 20:00 WBC (3.8-10.6) k/uL RBC (3.80-5.40) m/uL Hgb (11.4-16.0) gm/dL Hct (34.0-46.0) % MCV (80.0-100.0) fL MCH (25.0-35.0) pg MCHC (31.0-37.0) g/dL RDW (11.5-15.5) % Plt Count (150-450) k/uL MPV Neutrophils % % Lymphocytes % % Monocytes % % Eosinophils % % Basophils % % Neutrophils # (1.3-7.7) k/uL Lymphocytes # (1.0-4.8) k/uL Monocytes # (0-1.0) k/uL Eosinophils # (0-0.7) k/uL Basophils # (0-0.2) k/uL Sodium 137 (137-145) mmol/L Potassium 3.8 (3.5-5.1) mmol/L Chloride 109 H (98-107) mmol/L Carbon Dioxide 21 L (22-30) mmol/L Anion Gap 7 mmol/L BUN 9 (7-17) mg/dL Creatinine 0.59 (0.52-1.04) mg/dL Est GFR (CKD-EPI)AfAm >90 (>60 ml/min/1.73 sqM) Est GFR (CKD-EPI)NonAf >90 (>60 ml/min/1.73 sqM) Glucose 114 H (74-99) mg/dL Lactic Ac Sepsis Rflx Y Plasma Lactic Acid Fabien (0.7-2.0) mmol/L Calcium 8.3 L (8.4-10.2) mg/dL Total Bilirubin 0.6 (0.2-1.3) mg/dL AST 35 (14-36) U/L ALT 30 (4-34) U/L Alkaline Phosphatase 42 (38-126) U/L C-Reactive Protein 0.7 (<1.0) mg/dL Total Protein 6.7 (6.3-8.2) g/dL Albumin 4.2 (3.5-5.0) g/dL Amylase 54 (30-110) U/L Lipase 60 (23-300) U/L Urine Color Urine Appearance (Clear) Urine pH (5.0-8.0) Ur Specific [place] (1.001-1.035) Urine Protein (Negative) Urine Glucose (UA) (Negative) Urine Ketones (Negative) Urine Blood (Negative) Urine Nitrite (Negative) Urine Bilirubin (Negative) Urine Urobilinogen (<2.0) mg/dL Ur Leukocyte Esterase (Negative) Urine RBC (0-5) /hpf Urine WBC (0-5) /hpf Ur Squamous Epith Cells (0-4) /hpf Urine Mucus (None) /hpf Urine HCG, Qual (Not Detectd) Disposition Clinical Impression: Abdominal pain Disposition: HOME SELF-CARE Condition: Good Instructions (If sedation given, give patient instructions): Abdominal Pain (ED) Is patient prescribed a controlled substance at d/c from ED?: No Referrals: Daniel Fu MD [Primary Care Provider] - 1-2 days
[2024-01-30] MEDS: ONDANSETRON 4 MG/2 ML VIAL IVP STA (17:26)
[2024-01-30] MEDS: MORPHINE SULFATE 4 MG/ML SYRINGE IV STA (17:26)
[2024-01-30 17:46] LABS: Basophils % (A) 0 %; Eosinophils # (A) 0.1 k/uL (0-0.7); Eosinophils % (A) 0 %; HCT 39.4 % (34.0-46.0); HGB 13.1 gm/dL (11.4-16.0); Lymphocytes # (A) 0.9 k/uL (1.0-4.8); Lymphocytes % (A) 6 %; MCH 29.2 pg (25.0-35.0); MCHC 33.2 g/dL (31.0-37.0); Mean Platelet Volume 7.9; Monocytes # (A) 0.4 k/uL (0-1.0); Monocytes % (A) 3 %; Neutrophils # (A) 12.3 k/uL (1.3-7.7); Neutrophils % (A) 90 %; Platelet Count 237 k/uL (150-450); RBC 4.47 m/uL (3.80-5.40); RDW 12.6 % (11.5-15.5); WBC 13.7 k/uL (3.8-10.6)
[2024-01-30 18:54] LABS: Appearance,Urine Clear (Clear); Bilirubin,Urine Negative (Negative); Blood,Urine Negative (Negative); Color,Urine Light Yellow; Glucose,Urine (UA) Negative (Negative); Ketones,Urine 2+ (Negative); Leukocyte Esterase,Urine Negative (Negative); Mucus,Urine Rare /hpf; Nitrite,Urine Negative (Negative); PH, Urine 7.5 (5.0-8.0); Protein,Urine 1+ (Negative); RBC,Urine <1 /hpf (0-5); Specific Gravity,Urine 1.023 (1.001-1.035); Squamous Epithelial Cell,Urine <1 /hpf (0-4); Urobilinogen,Urine <2.0 mg/dL (<2.0); WBC,Urine <1 /hpf (0-5)
[2024-01-30] MEDS: SODIUM CHLORIDE 0.9% 1,000 ML IV STA (19:12)
[2024-01-30] MEDS: SODIUM CHLORIDE 0.9% 500 ML 500 ML IV STA (19:13)
[2024-01-30] MEDS: SODIUM CHLORIDE 0.9% 1,000 ML IV ONE (19:13)
[2024-01-30 20:32] LABS: ALT 30 U/L (4-34); AST 35 U/L (14-36); African American GFR (CKD) >90 (>60 ml/min/1.73 sqM); Albumin 4.2 g/dL (3.5-5.0); Alkaline Phosphatase 42 U/L (38-126); Amylase 54 U/L (30-110); Anion Gap 7 mmol/L; Blood Urea Nitrogen 9 mg/dL (7-17); C Reactive Protein 0.7 mg/dL (<1.0); Calcium 8.3 mg/dL (8.4-10.2); Carbon Dioxide 21 mmol/L (22-30); Chloride 109 mmol/L (98-107); Glucose 114 mg/dL (74-99); Lipase 60 U/L (23-300); Non-African American GFR(CKD) >90 (>60 ml/min/1.73 sqM); Potassium 3.8 mmol/L (3.5-5.1); Sodium 137 mmol/L (137-145); Total Bilirubin 0.6 mg/dL (0.2-1.3); Total Protein 6.7 g/dL (6.3-8.2)
[2024-01-30 21:18] VITALS: BP 115/70; PULSE 71
== END 2024-01-30 21:18 | disposition home or self-care (01) ==
LOC: EC 16:19
DX: R10.31 Right lower quadrant pain (principal); R10.32 Left lower quadrant pain; R11.2 Nausea with vomiting, unspecified; F17.200 Nicotine dependence, unspecified, uncomplicated; Z88.8 Allergy status to other drugs, medicaments and biological substances
CPT/HCPCS: 36415; 80053; 82150; 83605; 83690; 85025; 86140; 81001; 81025; 99284; 96374; 96375; 96361 ×2; J2270; J2405

== ENCOUNTER 2024-05-24 13:55 | Inpatient (IN) | payer BC ==
--- NOTE | 2024-05-24 15:07 | ED ---
Psych HPI - General Source: patient, family, RN notes reviewed Mode of arrival: ambulatory Limitations: no limitations <Bjorn Frost - Last Filed: 05/24/24 15:06> <Yassine Barbosa - Last Filed: 05/24/24 19:19> - General Chief Complaint: Psychiatric Symptoms Stated Complaint: mental health eval Time Seen by Provider: 05/24/24 14:18 - History of Present Illness Initial Comments: 29-year-old female presents emergency department complaint of severe depression, anxiety and suicidal ideation. Patient states she is struggled with depression majority of her life in which she had severe depression depression and was placed on Prozac in the past. She was recently started back on Prozac after having miscarriage by her [employer]IN[employer] INSTRU[employer]. Patient states that she had severe bleeding and had an emergent D&C [id number] when she was on a trip. Patient states that she still having some stomach issues in which she said prior to her D&C she was having nausea and vomiting. Patient states that she just feels very hopeless, feels unsafe at home. She denies any self-harm denies drug use alcohol abuse (Bjorn Frost) - Related Data Home Medications Medication Instructions Recorded Confirmed Ciprofloxacin HCl [Cipro] 500 mg PO Q12HR 05/24/24 05/24/24 FLUoxetine HCL 40 mg PO DAILY 05/24/24 05/24/24 Ibuprofen [Motrin] 800 mg PO Q8H 05/24/24 05/24/24 busPIRone HCl [Buspar] 10 mg PO DAILY PRN 05/24/24 05/24/24 Allergies Allergy/AdvReac Type Severity Reaction Status Date / Time nickel Allergy Rash/Hives Verified 05/24/24 16:11 paroxetine [From Paxil] AdvReac Nausea & Verified 05/24/24 16:11 Vomiting Review of Systems ROS Other: All systems not noted in ROS Statement are negative. <jBorn Frost - Last Filed: 05/24/24 15:06> ROS Other: All systems not noted in ROS Statement are negative. <Yassine Barbosa - Last Filed: 05/24/24 19:19> ROS Statement: Those systems with pertinent positive or pertinent negative responses have been documented in the HPI. Past Medical History Past Medical History: No Reported History History of Any Multi-Drug Resistant Organisms: None Reported Past Surgical History: Adenoidectomy, Tonsillectomy Additional Past Surgical History / Comment(s): left breast mass removed Past Anesthesia/Blood Transfusion Reactions: No Reported Reaction Past Psychological History: Anxiety Smoking Status: Current every day smoker Past Alcohol Use History: Occasional Past Drug Use History: Marijuana - Past Family History Father Family Medical History: Hypertension <MargotBjorn Simons - Last Filed: 05/24/24 15:06> General Exam Limitations: no limitations General appearance: alert, in no apparent distress Head exam: Present: atraumatic, normocephalic, normal inspection Eye exam: Present: normal appearance, PERRL, EOMI. Absent: scleral icterus, conjunctival injection, periorbital swelling ENT exam: Present: normal exam, mucous membranes moist Neck exam: Present: normal inspection, full ROM. Absent: tenderness, meningismus, lymphadenopathy Respiratory exam: Present: normal lung sounds bilaterally. Absent: respiratory distress, wheezes, rales, rhonchi, stridor Cardiovascular Exam: Present: regular rate, normal rhythm, normal heart sounds. Absent: systolic murmur, diastolic murmur, rubs, gallop, clicks GI/Abdominal exam: Present: soft, normal bowel sounds. Absent: distended, tenderness, guarding, rebound, rigid Neurological exam: Present: alert Psychiatric exam: Present: depressed, flat affect Skin exam: Present: warm, dry, intact, normal color. Absent: rash <Bjorn Frost - Last Filed: 05/24/24 15:06> Course Vital Signs 05/24/24 14:03 Temperature 98.3 F Pulse Rate 74 Respiratory 18 Rate Blood Pressure 144/89 O2 Sat by Pulse 100 Oximetry Medical Decision Making - Lab Data Result diagrams: 05/24/24 15:51 05/24/24 15:51 <Yassine Barbosa - Last Filed: 05/24/24 19:19> - Medical Decision Making Patient signed out to me pending results of laboratory studies. Laboratory studies within acceptable limits. Medically cleared for evaluation by psychiatry. KAITLYN Wong informing that patient does meet inpatient criteria. Patient admitted to inpatient psychiatry in stable condition. Diagnosis/symptom? @ -Suicidal ideation, encounter for psychiatric evaluation Acute, or Chronic, or Acute on Chronic? @ -Acute Uncomplicated (without systemic symptoms) or Complicated (systemic symptoms)? @ -Complicated Side effects of treatment? @ -None Exacerbation, Progression, or Severe Exacerbation] @ -No Poses a threat to life or bodily function? @ -Potentially, yes (Yassine Barbosa) - Lab Data Lab Results 05/24/24 05/24/24 05/24/24 Range/Units 15:49 15:51 15:51 WBC 3.5 L (3.8-10.6) k/uL RBC 3.65 L (3.80-5.40) m/uL Hgb 10.8 L (11.4-16.0) gm/dL Hct 31.3 L (34.0-46.0) % MCV 85.6 (80.0-100.0) fL MCH 29.6 (25.0-35.0) pg MCHC 34.5 (31.0-37.0) g/dL RDW 12.4 (11.5-15.5) % Plt Count 319 (150-450) k/uL MPV 7.3 Neutrophils % 43 % Lymphocytes % 42 % Monocytes % 10 % Eosinophils % 1 % Basophils % 1 % Neutrophils # 1.5 (1.3-7.7) k/uL Lymphocytes # 1.5 (1.0-4.8) k/uL Monocytes # 0.4 (0-1.0) k/uL Eosinophils # 0.0 (0-0.7) k/uL Basophils # 0.0 (0-0.2) k/uL Sodium 136 L (137-145) mmol/L Potassium 3.9 (3.5-5.1) mmol/L Chloride 102 (98-107) mmol/L Carbon Dioxide 23 (22-30) mmol/L Anion Gap 11 mmol/L BUN 7 (7-17) mg/dL Creatinine 0.73 (0.52-1.04) mg/dL Est GFR (CKD-EPI)AfAm >90 (>60 ml/min/1.73 sqM) Est GFR (CKD-EPI)NonAf >90 (>60 ml/min/1.73 sqM) Glucose 92 (74-99) mg/dL Calcium 9.0 (8.4-10.2) mg/dL Magnesium 2.0 (1.6-2.3) mg/dL Total Bilirubin 0.3 (0.2-1.3) mg/dL AST 25 (14-36) U/L ALT 21 (4-34) U/L Alkaline Phosphatase 61 (38-126) U/L Total Protein 6.8 (6.3-8.2) g/dL Albumin 4.1 (3.5-5.0) g/dL TSH 1.450 (0.465-4.680) mIU/L Urine Color Urine Appearance (Clear) Urine pH (5.0-8.0) Ur Specific [place] (1.001-1.035) Urine Protein (Negative) Urine Glucose (UA) (Negative) Urine Ketones (Negative) Urine Blood (Negative) Urine Nitrite (Negative) Urine Bilirubin (Negative) Urine Urobilinogen (<2.0) mg/dL Ur Leukocyte Esterase (Negative) Urine Opiates Screen (NotDetected) Ur Oxycodone Screen (NotDetected) Urine Methadone Screen (NotDetected) Ur Barbiturates Screen (NotDetected) U Tricyclic Antidepress (NotDetected) Ur Phencyclidine Scrn (NotDetected) Ur Amphetamines Screen (NotDetected) U Methamphetamines Scrn (NotDetected) U Benzodiazepines Scrn (NotDetected) Urine Cocaine Screen (NotDetected) U Marijuana (THC) Screen (NotDetected) SARS-CoV-2 (PCR) Not Detected (Not Detectd) 05/24/24 05/24/24 Range/Units 18:15 18:15 WBC (3.8-10.6) k/uL RBC (3.80-5.40) m/uL Hgb (11.4-16.0) gm/dL Hct (34.0-46.0) % MCV (80.0-100.0) fL MCH (25.0-35.0) pg MCHC (31.0-37.0) g/dL RDW (11.5-15.5) % Plt Count (150-450) k/uL MPV Neutrophils % % Lymphocytes % % Monocytes % % Eosinophils % % Basophils % % Neutrophils # (1.3-7.7) k/uL Lymphocytes # (1.0-4.8) k/uL Monocytes # (0-1.0) k/uL Eosinophils # (0-0.7) k/uL Basophils # (0-0.2) k/uL Sodium (137-145) mmol/L Potassium (3.5-5.1) mmol/L Chloride (98-107) mmol/L Carbon Dioxide (22-30) mmol/L Anion Gap mmol/L BUN (7-17) mg/dL Creatinine (0.52-1.04) mg/dL Est GFR (CKD-EPI)AfAm (>60 ml/min/1.73 sqM) Est GFR (CKD-EPI)NonAf (>60 ml/min/1.73 sqM) Glucose (74-99) mg/dL Calcium (8.4-10.2) mg/dL Magnesium (1.6-2.3) mg/dL Total Bilirubin (0.2-1.3) mg/dL AST (14-36) U/L ALT (4-34) U/L Alkaline Phosphatase (38-126) U/L Total Protein (6.3-8.2) g/dL Albumin (3.5-5.0) g/dL TSH (0.465-4.680) mIU/L Urine Color Colorless Urine Appearance Clear (Clear) Urine pH 6.0 (5.0-8.0) Ur Specific [place] 1.006 (1.001-1.035) Urine Protein Negative (Negative) Urine Glucose (UA) Negative (Negative) Urine Ketones Trace H (Negative) Urine Blood Negative (Negative) Urine Nitrite Negative (Negative) Urine Bilirubin Negative (Negative) Urine Urobilinogen <2.0 (<2.0) mg/dL Ur Leukocyte Esterase Negative (Negative) Urine Opiates Screen Not Detected (NotDetected) Ur Oxycodone Screen Not Detected (NotDetected) Urine Methadone Screen Not Detected (NotDetected) Ur Barbiturates Screen Not Detected (NotDetected) U Tricyclic Antidepress Not Detected (NotDetected) Ur Phencyclidine Scrn Not Detected (NotDetected) Ur Amphetamines Screen Not Detected (NotDetected) U Methamphetamines Scrn Not Detected (NotDetected) U Benzodiazepines Scrn Not Detected (NotDetected) Urine Cocaine Screen Not Detected (NotDetected) U Marijuana (THC) Screen Detected H (NotDetected) SARS-CoV-2 (PCR) (Not Detectd) Disposition <Bjorn Frost - Last Filed: 05/24/24 15:06> Is patient prescribed a controlled substance at d/c from ED?: No Time of Disposition: 19:19 <Yassine Barbosa - Last Filed: 05/24/24 19:19> Clinical Impression: Encounter for psychiatric assessment, Suicidal ideations Disposition: ADMITTED IP TO THIS HOSP Condition: Stable Referrals: Werner Schwartz DO [Primary Care Provider] - 1-2 days
[2024-05-24] MEDS: FAMOTIDINE 20 MG/2 ML VIAL IV STA (15:40)
[2024-05-24] MEDS: ONDANSETRON 4 MG/2 ML VIAL IVP STA (15:41)
[2024-05-24 16:26] LABS: Basophils % (A) 1 %; Eosinophils % (A) 1 %; HCT 31.3 % (34.0-46.0); HGB 10.8 gm/dL (11.4-16.0); Lymphocytes # (A) 1.5 k/uL (1.0-4.8); Lymphocytes % (A) 42 %; MCH 29.6 pg (25.0-35.0); MCHC 34.5 g/dL (31.0-37.0); MCV 85.6 fL (80.0-100.0); Mean Platelet Volume 7.3; Monocytes # (A) 0.4 k/uL (0-1.0); Monocytes % (A) 10 %; Neutrophils # (A) 1.5 k/uL (1.3-7.7); Neutrophils % (A) 43 %; Platelet Count 319 k/uL (150-450); RBC 3.65 m/uL (3.80-5.40); RDW 12.4 % (11.5-15.5); WBC 3.5 k/uL (3.8-10.6)
[2024-05-24 16:37] LABS: ALT 21 U/L (4-34); AST 25 U/L (14-36); African American GFR (CKD) >90 (>60 ml/min/1.73 sqM); Albumin 4.1 g/dL (3.5-5.0); Alkaline Phosphatase 61 U/L (38-126); Anion Gap 11 mmol/L; Blood Urea Nitrogen 7 mg/dL (7-17); Carbon Dioxide 23 mmol/L (22-30); Chloride 102 mmol/L (98-107); Glucose 92 mg/dL (74-99); Non-African American GFR(CKD) >90 (>60 ml/min/1.73 sqM); Potassium 3.9 mmol/L (3.5-5.1); Sodium 136 mmol/L (137-145); Total Bilirubin 0.3 mg/dL (0.2-1.3); Total Protein 6.8 g/dL (6.3-8.2)
[2024-05-24 18:26] LABS: Appearance,Urine Clear (Clear); Bilirubin,Urine Negative (Negative); Blood,Urine Negative (Negative); Color,Urine Colorless; Glucose,Urine (UA) Negative (Negative); Ketones,Urine Trace (Negative); Leukocyte Esterase,Urine Negative (Negative); Nitrite,Urine Negative (Negative); Protein,Urine Negative (Negative); Specific Gravity,Urine 1.006 (1.001-1.035); Urobilinogen,Urine <2.0 mg/dL (<2.0)
[2024-05-24 18:36] LABS: Amphetamine Screen,Urine Not Detected (NotDetected); Barbiturate Screen,Urine Not Detected (NotDetected); Benzodiazepines Screen,Urine Not Detected (NotDetected); Cocaine Screen,Urine Not Detected (NotDetected); Methadone Screen, Urine Not Detected (NotDetected); Opiate Screen,Urine Not Detected (NotDetected); Oxycodone Screen, Urine Not Detected (NotDetected); Phencyclidine Screen,Urine Not Detected (NotDetected); Tricyclic Antidepressant,Urine Not Detected (NotDetected); Urn Cannabinoid Scrn Detected (NotDetected)
[2024-05-24] MEDS: IBUPROFEN 600 MG TAB PO STA (19:32)
[2024-05-24] MEDS ORDERED: MAGNESIUM HYDROXIDE 2,400 MG/30 ML CUP PO PRN (20:24)
[2024-05-24] MEDS ORDERED: MAG HYDROX/AL HYDROX/SIMETH 355 ML BOTTLE PO PRN (20:24)
[2024-05-24] MEDS ORDERED: busPIRone HCl 10 MG TAB PO PRN (20:27)
[2024-05-24] MEDS ORDERED: LORazepam 2 MG/ML INJ IM PRN (20:28)
[2024-05-24] MEDS ORDERED: HALOPERIDOL LACTATE 5 MG/ML 1 ML VIAL IM PRN (20:28)
[2024-05-24] MEDS ORDERED: ONDANSETRON ODT 4 MG TAB PO PRN (20:29)
[2024-05-24] MEDS ORDERED: ONDANSETRON ODT 8 MG TAB.RAPDIS PO PRN (21:11)
[2024-05-24] MEDS: CIPROFLOXACIN HCL 500 MG TAB PO SCH (22:01)
[2024-05-24] MEDS: ACETAMINOPHEN TAB 325 MG TAB PO PRN (22:03)
[2024-05-24] MEDS: LORazepam 1 MG TAB PO PRN (22:03)
[2024-05-24] MEDS: haloperidoL 5 MG TAB PO PRN (22:04)
[2024-05-25] MEDS: FLUoxetine HCL 20 MG CAP PO SCH (08:32)
[2024-05-25] MEDS: NICOTINE 14MG/24HR PATCH TRANSDERM SCH (08:33)
--- NOTE | 2024-05-25 11:24 | P.HP ---
Psychiatric H&P - . H&P Date: 05/25/24 History & Physical: Allergies Allergy/AdvReac Type Severity Reaction Status Date / Time nickel Allergy Rash/Hives Verified 05/24/24 16:11 paroxetine [From Paxil] AdvReac Nausea & Verified 05/24/24 16:11 Vomiting Vital Signs Temp 97.8 F 05/25/24 09:00 Pulse 110 H 05/25/24 09:00 Resp 16 05/25/24 09:00 BP 115/78 05/25/24 09:00 Pulse Ox 100 05/24/24 21:50 FiO2 Intake & Output 05/24/24 05/25/24 05/25/24 18:59 06:59 18:59 Weight 61.235 kg 61.235 kg Laboratory Last Values WBC 3.5 k/uL (3.8-10.6) L 05/24/24 15:51 RBC 3.65 m/uL (3.80-5.40) L 05/24/24 15:51 Hgb 10.8 gm/dL (11.4-16.0) L 05/24/24 15:51 Hct 31.3 % (34.0-46.0) L 05/24/24 15:51 MCV 85.6 fL (80.0-100.0) 05/24/24 15:51 MCH 29.6 pg (25.0-35.0) 05/24/24 15:51 MCHC 34.5 g/dL (31.0-37.0) 05/24/24 15:51 RDW 12.4 % (11.5-15.5) 05/24/24 15:51 Plt Count 319 k/uL (150-450) 05/24/24 15:51 MPV 7.3 05/24/24 15:51 Neutrophils % 43 % 05/24/24 15:51 Lymphocytes % 42 % 05/24/24 15:51 Monocytes % 10 % 05/24/24 15:51 Eosinophils % 1 % 05/24/24 15:51 Basophils % 1 % 05/24/24 15:51 Neutrophils # 1.5 k/uL (1.3-7.7) 05/24/24 15:51 Lymphocytes # 1.5 k/uL (1.0-4.8) 05/24/24 15:51 Monocytes # 0.4 k/uL (0-1.0) 05/24/24 15:51 Eosinophils # 0.0 k/uL (0-0.7) 05/24/24 15:51 Basophils # 0.0 k/uL (0-0.2) 05/24/24 15:51 Sodium 136 mmol/L (137-145) L 05/24/24 15:51 Potassium 3.9 mmol/L (3.5-5.1) 05/24/24 15:51 Chloride 102 mmol/L (98-107) 05/24/24 15:51 Carbon Dioxide 23 mmol/L (22-30) 05/24/24 15:51 Anion Gap 11 mmol/L 05/24/24 15:51 BUN 7 mg/dL (7-17) 05/24/24 15:51 Creatinine 0.73 mg/dL (0.52-1.04) 05/24/24 15:51 Est GFR (CKD-EPI)AfAm >90 (>60 ml/min/1.73 sqM) 05/24/24 15:51 Est GFR (CKD-EPI)NonAf >90 (>60 ml/min/1.73 sqM) 05/24/24 15:51 Glucose 92 mg/dL (74-99) 05/24/24 15:[address] Glu mg/dL 103 mg/dL 05/25/24 06:35 Hemoglobin A1c 5.2 % (<=6.0) 05/25/24 06:35 Calcium 9.0 mg/dL (8.4-10.2) 05/24/24 15:51 Magnesium 2.0 mg/dL (1.6-2.3) 05/24/24 15:51 Total Bilirubin 0.3 mg/dL (0.2-1.3) 05/24/24 15:51 AST 25 U/L (14-36) 05/24/24 15:51 ALT 21 U/L (4-34) 05/24/24 15:51 Alkaline Phosphatase 61 U/L (38-126) 05/24/24 15:51 Total Protein 6.8 g/dL (6.3-8.2) 05/24/24 15:51 Albumin 4.1 g/dL (3.5-5.0) 05/24/24 15:51 TSH 3.900 mIU/L (0.465-4.680) 05/25/24 06:35 Urine Color Colorless 05/24/24 18:15 Urine Appearance Clear (Clear) 05/24/24 18:15 Urine pH 6.0 (5.0-8.0) 05/24/24 18:15 Ur Specific [place] 1.006 (1.001-1.035) 05/24/24 18:15 Urine Protein Negative (Negative) 05/24/24 18:15 Urine Glucose (UA) Negative (Negative) 05/24/24 18:15 Urine Ketones Trace (Negative) H 05/24/24 18:15 Urine Blood Negative (Negative) 05/24/24 18:15 Urine Nitrite Negative (Negative) 05/24/24 18:15 Urine Bilirubin Negative (Negative) 05/24/24 18:15 Urine Urobilinogen <2.0 mg/dL (<2.0) 05/24/24 18:15 Ur Leukocyte Esterase Negative (Negative) 05/24/24 18:15 Urine Opiates Screen Not Detected (NotDetected) 05/24/24 18:15 Ur Oxycodone Screen Not Detected (NotDetected) 05/24/24 18:15 Urine Methadone Screen Not Detected (NotDetected) 05/24/24 18:15 Ur Barbiturates Screen Not Detected (NotDetected) 05/24/24 18:15 U Tricyclic Antidepress Not Detected (NotDetected) 05/24/24 18:15 Ur Phencyclidine Scrn Not Detected (NotDetected) 05/24/24 18:15 Ur Amphetamines Screen Not Detected (NotDetected) 05/24/24 18:15 U Methamphetamines Scrn Not Detected (NotDetected) 05/24/24 18:15 U Benzodiazepines Scrn Not Detected (NotDetected) 05/24/24 18:15 Urine Cocaine Screen Not Detected (NotDetected) 05/24/24 18:15 U Marijuana (THC) Screen Detected (NotDetected) H 05/24/24 18:15 SARS-CoV-2 (PCR) Not Detected (Not Detectd) 05/24/24 15:49 IDENTIFYING DATA: Patient is a 29 yo female , currently lives with her boyfriend and child in a house, works at [employer] and 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 HPI: Patient presented to the hospital yesterday and was evaluated in the ER, for depression and anxiety suicidal thoughts. Patient was seen by EPS, admitted to the mental health unit. Patient was seen today for psychiatric evaluation in the office. Claims that she has been dealing with chronic anxiety and depression for several years now. Claims that she had a recent miscarriage on May 14 and claims that "I have not been able to function" since then. Claims that she has been having amotivation, anhedonia. Endorse significant depression and anxiety. Claims that she is always thinking about and also her health. Claims that she feels that she cannot stop breathing, was fairly tearful when describing the situation. Claims that she needed the D&C procedure in [place] while she was in vacation and claims that she has flashbacks to that. States that she has been having suicidal thoughts, no specific plan. Claims that she went to see her storage receipt poster who told her to come into the hospital for evaluation. Claims that her suicidal thoughts have been on and off, homicidal ideations she denies. Claims that she is hearing voices mainly "negative talk" and states that it is a man's voice. Denies any visual hallucinations. Patient denies any flight of ideas racing thoughts and increased in goal directed behavior. Patient admits to using marijuana occasionally, denies any other recreational drugs. appetite is poor, sleep is poor. PAST PSYCHIATRIC HISTORY: Patient has a history of depression and anxiety. Patient is currently on Prozac 40 mg daily, has only been on it since Wednesday. [Patient denies any previous psychiatric hospitalizations.] [Patient denies any psychiatric outpatient follow-up.] [Patient denies any history of suicide attempts in the past.] Past Medical History: No Reported History History of Any Multi-Drug Resistant Organisms: None Reported Past Surgical History: Adenoidectomy, Tonsillectomy Additional Past Surgical History / Comment(s): left breast mass removed Past Anesthesia/Blood Transfusion Reactions: No Reported Reaction Past Psychological History: Anxiety Smoking Status: Current every day smoker Past Alcohol Use History: Occasional Past Drug Use History: Marijuana ALLERGIES: as per EMR CHEMICAL DEPENDENCY HISTORY: as per HPI FAMILY PSYCHIATRIC/SUBSTANCE USE HISTORY: States that her father and grandmother have anxiety SOCIAL HISTORY: Patient was born and raised in [place] area, claims that she completed her bachelor's degree completed high school. Denies any legal history.. MENTAL STATUS EXAM: General Appearance: Patient appears to be thin, wearing glasses, hospital gown, stated age is alert, [directable, and attempts to cooperate]. Patient appears to have fair hygiene and grooming. Behavior: Patient is seated without any agitated behavior. Cooperate Speech: Patient's speech is [fluent and nonpressured.] Hesitant at times Mood/Affect: Patient reports their mood is [depressed and anxious], affect is congruent and tearful at times Suicidality/Homicidality: Patient denies having any homicidal ideation intent or plan. Admits to on and off suicidal thoughts, no specific plan or intent Perceptions: Patient denies any visual hallucinations is admitting to auditory hallucinations Though content/process: [There is no evidence of any delusional thought content and thought process is linear and goal-directed.] Focused on her stressors Memory and concentration: AOX3, grossly intact for the purposes of this session. Can spell "WORLD" backwards Judgment and insight: fair STRENGTHS/WEAKNESSES: strength is that patient is [resilient]. Weakness is that patient has underlying mental health issues, and a recent traumatic event. INTELLECT: [average] IMPRESSIONS: Major depressive disorder severe with psychotic feature anxiety disorder unspecified trauma related stress disorder cannabis use disorder, mild PLAN: -Patient is admitted under [voluntary] status to MHU for stabilization of psychiatric symptoms and safety. Patient has signed adult voluntary form and has signed medication consent and is placed in patient's chart. -Medications : zoloft 50 mg daily for mood/anxiety, seroquel 50 mg qhs for sleep/mood stabilization/anxiety. buspar 10 mg bid for anxiety. -Ativan [and Haldol] PRN for agitation/aggression -Patient was informed of the risks, benefits and side effects of the medications [and patient verbally consented to taking the medications]. Patient signed med consent form and was placed in chart. Patient was offered medication information and [accepted it] -Internal Medicine consult to perform medical evaluation and physical. -NRT - not needed as patient does not smoke accepted it and patient verbally consented to taking the medications and Haldol voluntary Average resilient There is no evidence of any delusional thought content and thought process is linear and goal-directed. depressed and anxious fluent and nonpressured. directable, and attempts to cooperate Patient denies any history of suicide attempts in the past. Patient denies any psychiatric outpatient follow-up. Patient denies any previous psychiatric hospitalizations. from [facility][not needed as patient does not smoke] -SW on board for discharge planning. Encourage patient to participate in groups to work on coping skills.
[2024-05-25] MEDS: SERTRALINE 25 MG TAB PO ONE (11:57)
[2024-05-25] MEDS: busPIRone HCl 10 MG TAB PO SCH (11:57)
--- NOTE | 2024-05-25 12:03 | P.CONS ---
History of Present Illness - Reason for Consult Consult date: 05/25/24 Medical management Requesting physician: Werner Casey - Chief Complaint Depressed - History of Present Illness This is a very pleasant 29-year-old patient follows with Dr. Schwartz. Patient does take Prozac and BuSpar as needed. She lives with her boyfriend and it 1/2-year-old daughter. Patient on May 15 of this year underwent miscarriage. She was 10 weeks . The 10 weeks of was rather troubled. A lot of nausea vomiting barely eating. She thinks she lost about 15 pounds in 2 months. Normally has a bowel movement every day. Patient brought herself to the ER. Feeling depressed anxious. Suicidal ideation. She has had depression for most of her life. She recently started back on Prozac. Patient had severe bleeding from her miscarriage and had an emergency D&C [id number] when she was on a trip. She denies any pelvic pain. Having some spotting. Patient just bring quite a bit of water. Not eating much. Does get some nausea. Patient does describe upper abdominal discomfort. Sometimes worse with eating food. Review of systems: GEN.: Tired e EYES: None HEENT: None NECK: None RESPIRATORY: None CARDIOVASCULAR: None GASTROINTESTINAL: As above GENITOURINARY: [Some vaginal spotting MUSCULOSKELETAL: None LYMPHATICS: None HEMATOLOGICAL: None PSYCHIATRY: As above NEUROLOGICAL: None Social history: Lives with her boyfriend. Has a daughter was 2-1/2 years old. 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 Denies any smoking alcohol Physical examination: VITAL SIGNS: 97.8, 110, 16, 115 x 78, the 100% room air GENERAL: BMI 22.5, sitting up, smiling. EYES: Pupils equal. Conjunctiva gita l. HEENT: External appearance of nose and ears normal, oral cavity grossly normal. NECK: JVD not raised; masses not palpable. HEART: First and second heart sounds are normal; no edema. LUNGS: Respiratory rate normal; clear to auscultation. ABDOMEN: Soft, minimal epigastric tenderness, liver spleen not palpable, no masses palpable. PSYCH: Alert and oriented x3; mood and affect slightly anxious l. MUSCULOSKELETAL:No Clubbing/cyanosis;muscles-grossly intact NEUROLOGICAL: Cranial nerves grossly intact; no facial asymmetry, power and sensation grossly intact. LYMPHATICS: No lymph nodes palpable in the axilla and neck INVESTIGATIONS, reviewed in the clinical context: May 24, 2024: White count 3.5 hemoglobin 10.8 platelet 319 sodium 136 potassium 3.9 creatinine 0.73 TSH 1.4 UA positive for ketones Urine drug screen positive for marijuana SARS-CoV-2 PCR: Not detected Assessment plan: -Anorexia multifactorial including depression and anxiety. Also nausea likely from increased water intake. Diet was discussed at length with the patient. Including decreasing water intake and taking fluids and other forms. Patient expressed understanding of the same. Ensure twice daily between meals -Possible gastritis. Will give Maalox 3 times a day while she is in the hospital. And Pepcid at night. Patient told to avoid acidic food related -Vaginal blood spotting. Patient is 10 days post miscarriage [place]. Had a D&C. Patient told to use a vaginal pad and monitor output. If an y significant then she needs to see CLERK TELEVISION [employer]. -Insomnia from underlying psychiatric conditions Hopefully with her psych medication she will do better -Major depressive disorder severe , anxiety disorder unspecified. This is being followed by psychiatrist. They have added Zoloft, Seroquel, BuSpar -Normocytic anemia, likely nutritional and from blood loss from miscarriage Add iron supplement Past Medical History Past Medical History: No Reported History History of Any Multi-Drug Resistant Organisms: None Reported Past Surgical History: Adenoidectomy, Tonsillectomy Additional Past Surgical History / Comment(s): left breast mass removed Past Anesthesia/Blood Transfusion Reactions: No Reported Reaction Smoking Status: Former smoker - Past Family History Father Family Medical History: Hypertension Medications and Allergies Home Medications Medication Instructions Recorded Confirmed Type Ciprofloxacin HCl [Cipro] 500 mg PO Q12HR 05/24/24 05/24/24 History FLUoxetine HCL 40 mg PO DAILY 05/24/24 05/24/24 History Ibuprofen [Motrin] 800 mg PO Q8H 05/24/24 05/24/24 History busPIRone HCl [Buspar] 10 mg PO DAILY PRN 05/24/24 05/24/24 History Allergies Allergy/AdvReac Type Severity Reaction Status Date / Time nickel Allergy Rash/Hives Verified 05/24/24 16:11 paroxetine [From Paxil] AdvReac Nausea & Verified 05/24/24 16:11 Vomiting Physical Exam Vitals: Vital Signs Temp Pulse Pulse Resp BP BP Pulse Ox 05/25/24 09:00 97.8 F 110 H 16 115/78 05/24/24 21:50 97.2 F L 77 18 136/82 100 05/24/24 14:03 98.3 F 74 18 144/89 100 Intake and Output 05/24/24 05/25/24 05/25/24 22:59 06:59 14:59 Other: Weight 61.235 kg Results CBC & Chem 7: 05/24/24 15:51 05/24/24 15:51 Labs: Abnormal Lab Results - Last 24 Hours (Table) 05/24/24 05/24/24 05/24/24 Range/Units 15:51 15:51 18:15 WBC 3.5 L (3.8-10.6) k/uL RBC 3.65 L (3.80-5.40) m/uL Hgb 10.8 L (11.4-16.0) gm/dL Hct 31.3 L (34.0-46.0) % Sodium 136 L (137-145) mmol/L Urine Ketones (Negative) U Marijuana (THC) Screen Detected H (NotDetected) 05/24/24 Range/Units 18:15 WBC (3.8-10.6) k/uL RBC (3.80-5.40) m/uL Hgb (11.4-16.0) gm/dL Hct (34.0-46.0) % Sodium (137-145) mmol/L Urine Ketones Trace H (Negative) U Marijuana (THC) Screen (NotDetected)
[2024-05-25] MEDS: FERROUS SULFATE 325 MG TAB PO SCH (12:39)
[2024-05-25] MEDS: MULTIVITAMINS, THERA 1 EACH TAB PO SCH (12:39)
[2024-05-25 15:28] VITALS: BMI 22.4
[2024-05-25] MEDS: QUEtiapine 50 MG TAB PO SCH (22:18)
[2024-05-26] MEDS: SERTRALINE 50 MG TAB PO SCH (08:35)
[2024-05-26] MEDS ORDERED: hydrOXYzine pamoate 25 MG CAP PO PRN (11:22)
--- NOTE | 2024-05-26 11:29 | P.PN ---
Progress Note - Text Progress Note Date: 05/26/24 Interval History: patient was seen today for psychiatric follow up. she was wandering the hallw ays today and appears to be more cooperative today, she appears to be less tearful less depressed. Claims that her depression level has been improving, does claim that she still has some anxiety. She took an Ativan last night due to overwhelming anxiety. States that she slept a bit better about 5 or 6 hours, we spoke about increasing the dose of her medications. She was agreeable to this. She asked more questions about her medication side effects. Appears to be a bit more future oriented today. Claims that she does miss her family or her partner will come to visit her over the weekend. She is denying any suicidal homicidal ideations intent or plan denying any auditory visual hallucinations. MENTAL STATUS EXAM: General Appearance: Patient appears to be thin, wearing glasses, stated age is alert, directable, and attempts to cooperate. Patient appears to have fair hygiene and grooming. Behavior: Patient is seated without any agitated behavior. Attempts to cooperate Speech: Patient's speech is fluent and nonpressured. Hesitant at times Mood/Affect: Patient reports their mood is depressed and anxious improving, affect is congruent and improving Suicidality/Homicidality: Patient denies having any homicidal ideation intent or plan. Denies having any suicidal thoughts, no specific plan or intent Perceptions: Patient denies any visual hallucinations is admitting to auditory hallucinations Though content/process: There is no evidence of any delusional thought content and thought process is linear and goal-directed. 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 Patient has signed adult voluntary form and has signed medication consent and is placed in patient's chart. -Medications : zoloft 50 mg daily for mood/anxiety, consider increasing this dose over the weekend if needed/tolerated, increase seroquel 75 mg qhs for sleep/mood stabilization/anxiety. Increase buspar 15 mg bid for anxiety. -Ativan and Haldol PRN for agitation/aggression -SW on board for discharge planning. Encourage patient to participate in groups to work on coping skills. Possible discharge Wednesday versus Wednesday of next week if patient is improving psychiatrically
[2024-05-26] MEDS: QUEtiapine 25 MG TAB PO SCH (20:52)
[2024-05-26] MEDS: busPIRone HCl 5 MG TAB PO SCH (20:52)
--- NOTE | 2024-05-27 15:48 | P.PN ---
Progress Note - Text Progress Note Date: 05/27/24 Interval history: Patient was seen [wandering the hallways] and was directable and agreeable to speak with resume writer. She discussed the circumstances leading to hospitalization including having had a miscarriage that she found traumatic. Also discussed with her the impact of hormones on mental health and provided psychoeducation. Patient states that she plans to be continue her medication from here on out. She reports feeling significantly better with current medication regimen. She states she has been sleeping well and eating well. She is quite happy with the improvement in herself since being on the current medication. She states that her anxiety has improved and she feels that her mood is "much better "since hospitalization. She says that she found herself laughing for the first time in a long time while participating in a group game yesterday. At this time patient denies any suicidal or homicidal ideations intent or plan. Denies any Auditory or visual hallucinations. Patient denies any side effects from the medications and has been compliant with meds. Mental status exam: General Appearance: [Patient appears to be stated age is alert, directable, and cooperative.] Behavior: [No agitated behavior. Patient is calm and directable] Speech: Patient's speech is fluent and nonpressured. Mood/Affect: Mood is improving, affect is congruent and constricted. Suicidality/Homicidality: Patient denies having any suicidal or homicidal ideation intent or plan. Perceptions: Patient denies any auditory or visual hallucinations. Though content/process: [There is no evidence of any delusional thought content and thought process is linear and goal-directed.] Memory and concentration: AOX3, grossly intact for the purposes of this session Judgment and insight: improving mildly Assessment/Plan: Continue with current diagnosis. Patient continues to meet criteria for inpatient psychiatric admission for symptom stabilization and safety.[Patient will be maintained on current psychotropic medication regimen.] Monitor for medication compliance and for any psychotropic medication side effects. Will continue to monitor ongoing response to treatment. Encouraged participation in milieu.
--- NOTE | 2024-05-28 11:54 | P.PN ---
Progress Note - Text Progress Note Date: 05/28/24 Interval history: Patient was seen [wandering the hallways] and was directable and agreeable to speak with ticket writer. Patient is future oriented and states that she has been feeling significantly better since hospitalization. She states that her current mood is "good ". She would like to be returning back to work soon. She has no other concerns. She endorses sleeping well and eating well. She would like to continue outpatient treatment and plans to enroll in psychotherapy to further process the grief following the miscarriage. She has been tolerating the medication well. Discussed that there is likely no need to further increase medications with which patient is comfortable. Discussed current dosage and medication regimen. At this time patient denies any suicidal or homicidal ideations intent or plan. Denies any Auditory or visual hallucinations. Patient denies any side effects from the medications and has been compliant with meds. Mental status exam: General Appearance: [Patient appears to be stated age patient is future oriented is alert, directable, and cooperative.] Behavior: [No agitated behavior. Patient is calm and directable] Speech: Patient's speech is fluent and nonpressured. Mood/Affect: Mood is improving, affect is congruent and constricted. Suicidality/Homicidality: Patient denies having any suicidal or homicidal ideation intent or plan. Future oriented Perceptions: Patient denies any auditory or visual hallucinations. Though content/process: [There is no evidence of any delusional thought content and thought process is linear and goal-directed.] Memory and concentration: AOX3, grossly intact for the purposes of this session Judgment and insight: improving mildly Assessment/Plan: Continue with current diagnosis. Patient continues to meet criteria for inpatient psychiatric admission for symptom stabilization and safety.[Patient will be maintained on current psychotropic medication regimen.] Monitor for medication compliance and for any psychotropic medication side effects. Will continue to monitor ongoing response to treatment. Encouraged participation in milieu. Consider for potential discharge tomorrow if continuing to have clinical improvement.
[2024-05-28] MEDS: IBUPROFEN 600 MG TAB PO PRN (21:22)
--- NOTE | 2024-05-29 10:29 | P.DS ---
Providers Date of admission: 05/24/24 20:16 Expected date of discharge: 05/29/24 Attending physician: Werner Casey MD Consults: 05/24/24 20:24 Consult Physician Routine Consulting Provider: Christian Patel Consult Reason/Comments: H&P, recent miscarriage, N/V Do you want consulting provider notified?: Yes Primary care physician: Werner Schwartz - Discharge Diagnosis(es) (1) Major depressive disorder, recurrent severe without psychotic features Current Visit: Yes Status: Acute Priority: High (2) Anxiety disorder Current Visit: Yes Status: Acute Priority: High (3) Trauma and stressor-related disorder Current Visit: Yes Status: Acute Priority: High (4) Cannabis use disorder, mild, abuse Current Visit: Yes Status: Acute Priority: Medium Hospital Course: Admission HPI: Admission note was completed by movie writer "Patient is a 29 yo female , currently lives with her boyfriend and child in a house, 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 Patient presented to the hospital yesterday and was evaluated in the ER, for depression and anxiety suicidal thoughts. Patient was seen by EPS, admitted to the mental health unit. Patient was seen today for psychiatric evaluation in the office. Claims that she has been dealing with chronic anxiety and depression for several years now. Claims that she had a recent miscarriage on May 14 and claims that "I have not been able to function" since then. Claims that she has been having amotivation, anhedonia. Endorse significant depression and anxiety. Claims that she is always thinking about and also her health. Claims that she feels that she cannot stop breathing, was fairly tearful when describing the situation. Claims that she needed the D&C procedure in [place] while she was in vacation and claims that she has flashbacks to that. States that she has been having suicidal thoughts, no specific plan. Claims that she went to see her medical records library professor who told her to come into the hospital for evaluation. Claims that her suicidal thoughts have been on and off, homicidal ideations she denies. Claims that she is hearing voices mainly "negative talk" and states that it is a man's voice. Denies any visual hallucinations. Patient denies any flight of ideas racing thoughts and increased in goal directed behavior. Patient admits to using marijuana occasionally, denies any other recreational drugs. appetite is poor, sleep is poor." Hospital course: Upon admission to the unit patient was directable and agreeable to commence treatment and signed adult voluntary form. Patient was initially depressed anxious however with time and treatment patient got along well with other patients on the unit and followed unit protocol. Patient was compliant with the medications and denied any side effects throughout hospital course. Patient was started on Zoloft increased to 50 mg daily for mood/anxiety, Seroquel 75 mg nightly for her sleep/mood stabilization/anxiety/psychosis, BuSpar increased to 15 mg twice daily for anxiety. Patient spoke of her stressors and engaged in therapy both group/activity therapy. Patient was also seen by medical team for history and physical exam. Throughout the course of the hospitalization patient gradually improved with regards to mood, anxiety, psychosis, sleep and became more future oriented with improved insight and judgment. On the day of discharge patient denied any suicidal or homicidal ideations intent or plan denied any auditory or visual hallucinations. Patient endorsed wanting to live for their health and family. The patient denied any access to guns or weapons. Patient denied any paranoia and did not endorse any delusions. Patient does have a significant history of substance abuse and was counseled on abstaining from all substances including alcohol and marijuana. Patient elected to do outpatient substance use treatment program through their outpatient provider. Patient was also counseled on the medications and need for regular compliance and was encouraged to follow-up with their outpatient appointment for mental health and also for primary care. Prior to discharge a family meeting will be arranged by social worker school to answer any questions and ensure safety upon discharge incuding making sure that guns/weapons are either removed from the home or locked away. Mental status exam: General Appearance: Patient appears to be thin, wearing glasses, stated age is alert, pleasant, and cooperative. Patient is in no acute distress and has improved hygiene and grooming Behavior: Patient is calmly seated without any agitated behavior. Speech: Patient's speech is fluent and nonpressured. Mood/Affect: Patient reports their mood is "good", affect is congruent and euthymic. Suicidality/Homicidality: Patient denies having any suicidal or homicidal ideation intent or plan. Perceptions: Patient denies any auditory or visual hallucinations. Though content/process: There is no evidence of any delusional thought content and thought process is linear and goal-directed. More future oriented Memory and concentration: AOX3, grossly intact for the purposes of this session. Can spell "WORLD" backwards correctly. Judgment and insight: improved with guarded prognosis Impression: Major depressive disorder severe with psychotic features Anxiety disorder unspecified Tremor related stress disorder Cannabis use disorder mild abuse Plan: -Continue with discharge today as patient has improved and stabilized psychiatrically and is not currently an imminent threat to themself and/or others. -Continue medications: Zoloft 50 mg daily for mood/anxiety, Seroquel 75 mg nightly for mood stabilization/insomnia/psychosis, BuSpar 15 mg twice daily for anxiety -Patient was counseled on the need for medication compliance and appropriate follow-up at mental health and also primary care for medical issues. Patient verbalized understanding and agreed. -Social work to help coordinate patients discharge today. also to ensure safe h ome environment that guns/weapons are either removed from the home or locked away. Social work also to arrange for patients follow up appointments for psychiatric care along with follow up with primary care provider. -Patient counseled on abstaining from recreational drugs and marijuana and alcohol. Was informed/educated on the adverse effects on their physical and mental health. Patient verbally agreed and understood. -Patient was instructed to return to the hospital or seek immediate medical care if their psychiatric or medical symptoms do worsen or reoccur. Allergies Allergy/AdvReac Type Severity Reaction Status Date / Time nickel Allergy Rash/Hives Verified 05/24/24 16:11 paroxetine [From Paxil] AdvReac Nausea & Verified 05/24/24 16:11 Vomiting Laboratory Results WBC 3.5 k/uL (3.8-10.6) L 05/24/24 15:51 RBC 3.65 m/uL (3.80-5.40) L 05/24/24 15:51 Hgb 10.8 gm/dL (11.4-16.0) L 05/24/24 15:51 Hct 31.3 % (34.0-46.0) L 05/24/24 15:51 MCV 85.6 fL (80.0-100.0) 05/24/24 15:51 MCH 29.6 pg (25.0-35.0) 05/24/24 15:51 MCHC 34.5 g/dL (31.0-37.0) 05/24/24 15:51 RDW 12.4 % (11.5-15.5) 05/24/24 15:51 Plt Count 319 k/uL (150-450) 05/24/24 15:51 MPV 7.3 05/24/24 15:51 Neutrophils % 43 % 05/24/24 15:51 Lymphocytes % 42 % 05/24/24 15:51 Monocytes % 10 % 05/24/24 15:51 Eosinophils % 1 % 05/24/24 15:51 Basophils % 1 % 05/24/24 15:51 Neutrophils # 1.5 k/uL (1.3-7.7) 05/24/24 15:51 Lymphocytes # 1.5 k/uL (1.0-4.8) 05/24/24 15:51 Monocytes # 0.4 k/uL (0-1.0) 05/24/24 15:51 Eosinophils # 0.0 k/uL (0-0.7) 05/24/24 15:51 Basophils # 0.0 k/uL (0-0.2) 05/24/24 15:51 Sodium 136 mmol/L (137-145) L 05/24/24 15:51 Potassium 3.9 mmol/L (3.5-5.1) 05/24/24 15:51 Chloride 102 mmol/L (98-107) 05/24/24 15:51 Carbon Dioxide 23 mmol/L (22-30) 05/24/24 15:51 Anion Gap 11 mmol/L 05/24/24 15:51 BUN 7 mg/dL (7-17) 05/24/24 15:51 Creatinine 0.73 mg/dL (0.52-1.04) 05/24/24 15:51 Est GFR (CKD-EPI)AfAm >90 (>60 ml/min/1.73 sqM) 05/24/24 15:51 Est GFR (CKD-EPI)NonAf >90 (>60 ml/min/1.73 sqM) 05/24/24 15:51 Glucose 92 mg/dL (74-99) 05/24/24 15:[address] Glu mg/dL 103 mg/dL 05/25/24 06:35 Hemoglobin A1c 5.2 % (<=6.0) 05/25/24 06:35 Calcium 9.0 mg/dL (8.4-10.2) 05/24/24 15:51 Magnesium 2.0 mg/dL (1.6-2.3) 05/24/24 15:51 Total Bilirubin 0.3 mg/dL (0.2-1.3) 05/24/24 15:51 AST 25 U/L (14-36) 05/24/24 15:51 ALT 21 U/L (4-34) 05/24/24 15:51 Alkaline Phosphatase 61 U/L (38-126) 05/24/24 15:51 Total Protein 6.8 g/dL (6.3-8.2) 05/24/24 15:51 Albumin 4.1 g/dL (3.5-5.0) 05/24/24 15:51 TSH 3.900 mIU/L (0.465-4.680) 05/25/24 06:35 Urine Color Colorless 05/24/24 18:15 Urine Appearance Clear (Clear) 05/24/24 18:15 Urine pH 6.0 (5.0-8.0) 05/24/24 18:15 Ur Specific [place] 1.006 (1.001-1.035) 05/24/24 18:15 Urine Protein Negative (Negative) 05/24/24 18:15 Urine Glucose (UA) Negative (Negative) 05/24/24 18:15 Urine Ketones Trace (Negative) H 05/24/24 18:15 Urine Blood Negative (Negative) 05/24/24 18:15 Urine Nitrite Negative (Negative) 05/24/24 18:15 Urine Bilirubin Negative (Negative) 05/24/24 18:15 Urine Urobilinogen <2.0 mg/dL (<2.0) 05/24/24 18:15 Ur Leukocyte Esterase Negative (Negative) 05/24/24 18:15 Urine Opiates Screen Not Detected (NotDetected) 05/24/24 18:15 Ur Oxycodone Screen Not Detected (NotDetected) 05/24/24 18:15 Urine Methadone Screen Not Detected (NotDetected) 05/24/24 18:15 Ur Barbiturates Screen Not Detected (NotDetected) 05/24/24 18:15 U Tricyclic Antidepress Not Detected (NotDetected) 05/24/24 18:15 Ur Phencyclidine Scrn Not Detected (NotDetected) 05/24/24 18:15 Ur Amphetamines Screen Not Detected (NotDetected) 05/24/24 18:15 U Methamphetamines Scrn Not Detected (NotDetected) 05/24/24 18:15 U Benzodiazepines Scrn Not Detected (NotDetected) 05/24/24 18:15 Urine Cocaine Screen Not Detected (NotDetected) 05/24/24 18:15 U Marijuana (THC) Screen Detected (NotDetected) H 05/24/24 18:15 SARS-CoV-2 (PCR) Not Detected (Not Detectd) 05/24/24 15:49 Vital Signs Temp 97.4 F L 05/28/24 21:20 Pulse 87 05/28/24 21:20 Resp 14 05/28/24 21:20 BP 137/87 05/28/24 21:20 Pulse Ox 98 05/28/24 21:20 FiO2 Intake & Output 05/28/24 05/29/24 05/29/24 18:59 06:59 18:59 Weight 61.6 kg Patient Condition at Discharge: Stable Plan - Discharge Summary Discharge Rx Participant: Yes New Discharge Prescriptions: New busPIRone HCL [Buspar] 15 mg PO BID 15 Days #60 tablet Multivitamins, Thera [Multivitamin (formulary)] 1 each PO DAILY #0 tab Ibuprofen [Motrin] 600 mg PO Q6HR PRN tab PRN Reason: Moderate Pain (Scale 4 To 6) QUEtiapine [SEROquel] 75 mg PO HS 15 Days #45 tab Acetaminophen Tab [Tylenol] 650 mg PO Q4HR PRN tab PRN Reason: Mild Pain (Scale 1 To 3) Sertraline [Zoloft] 50 mg PO DAILY 15 Days #15 tab Discontinued Ibuprofen [Motrin] 800 mg PO Q8H busPIRone HCl [Buspar] 10 mg PO DAILY PRN PRN Reason: Anxiety Ciprofloxacin HCl [Cipro] 500 mg PO Q12HR FLUoxetine HCL 40 mg PO DAILY Discharge Medication List Acetaminophen Tab [Tylenol] 650 mg PO Q4HR PRN tab 05/29/24 [Rx] Ibuprofen [Motrin] 600 mg PO Q6HR PRN tab 05/29/24 [Rx] Multivitamins, Thera [Multivitamin (formulary)] 1 each PO DAILY #0 tab 05/29/24 [Rx] QUEtiapine [SEROquel] 75 mg PO HS 15 Days #45 tab 05/29/24 [Rx] Sertraline [Zoloft] 50 mg PO DAILY 15 Days #15 tab 05/29/24 [Rx] busPIRone HCL [Buspar] 15 mg PO BID 15 Days #60 tablet 05/29/24 [Rx] Follow up Appointment(s)/Referral(s): [facility] [Outside] - 05/30/24 12:30 pm (Intake 05/30/24 @12:30 pm [facility]) Werner Schwartz DO [Primary Care Provider] - 1-2 days Activity/Diet/Wound Care/Special Instructions: [facility] Discharge Info Avoid the use of street drugs and alcohol. Take all medications as prescribed. When you are in need of refills on your medications, please contact your outpatient medical provider and/or outpatient psychiatrist. Please go to your scheduled outpatient appointments for aftercare treatment. If symptoms return or become worse, call the crisis line at or and/or visit the nearest emergency room for assistance. National Suicide and Crisis Lifeline - call or text 398 Discharge Disposition: HOME SELF-CARE
[2024-05-29 11:34] VITALS: BP 136/74; PULSE 88; RESP 17; TEMP 97.1
== END 2024-05-29 13:54 | disposition home or self-care (01) | DRG 885 ==
LOC: EC 13:55 → 3MHU 20:16
PROVIDERS: ADMIT Psychiatry & Neurology Psychiatry; ATTEND Psychiatry & Neurology Psychiatry
DX: F33.2 Major depressive disorder, recurrent severe without psychotic features (principal); R45.851 Suicidal ideations; F12.10 Cannabis abuse, uncomplicated; F17.200 Nicotine dependence, unspecified, uncomplicated; F41.9 Anxiety disorder, unspecified; F43.9 Reaction to severe stress, unspecified; G47.00 Insomnia, unspecified; O03.9 Complete or unspecified spontaneous abortion without complication; Z79.899 Other long term (current) drug therapy; R25.1 Tremor, unspecified; R63.0 Anorexia; Z68.22 Body mass index [BMI] 22.0-22.9, adult; Z71.3 Dietary counseling and surveillance; Z11.52 Encounter for screening for COVID-19; Z71.51 Drug abuse counseling and surveillance of drug abuser
CPT/HCPCS: 36415; 80053; 80306; 81003; 82075; 83036; 83735; 84443; 85025; 87635; 96374; 96375; 99285